=== PATIENT | male | born 1935 | race Caucasian/White ===

== ENCOUNTER 2016-10-30 11:38 | Inpatient (IN) | payer MEDICARE, OTHER ==
[2016-10-30] MEDS ORDERED: Ondansetron 4 MG Tab.DIS PO PRN (13:19)
[2016-10-30] MEDS ORDERED: Magnesium Hydroxide 400 MG/5 ML Susp 30 ML Cup PO PRN (13:19)
[2016-10-30] MEDS ORDERED: Temazepam 15 MG Cap PO PRN (13:19)
[2016-10-30] MEDS ORDERED: Simvastatin 20 MG Tab PO SCH (13:45)
[2016-10-30] MEDS: Gabapentin 300 MG Cap PO SCH ×2 (15:28→20:14)
[2016-10-30] MEDS: Acetaminophen 325 MG Tab PO PRN (16:05)
[2016-10-30] MEDS ORDERED: metFORMIN 500 MG Tab PO SCH (17:30)
[2016-10-30] MEDS: Insulin Aspart 100 Units/ML 3 ML Pen SUBCUT SCH (17:36)
[2016-10-30] MEDS: Simvastatin 20 MG Tab PO SCH (20:14)
[2016-10-30] MEDS: Latanoprost 0.005% Ophth Soln 2.5 ML Bottle EYEBOTH SCH (20:15)
[2016-10-30] MEDS: Formoterol/Mometasone 100-5 MCG 8.8 GM Inhaler IH SCH (20:15)
[2016-10-31] MEDS ORDERED: metFORMIN 500 MG Tab PO SCH (08:00)
[2016-10-31] MEDS ORDERED: Lisinopril 20 MG Tab PO SCH (08:00)
[2016-10-31] MEDS: Aspirin 81 MG Tab.EC PO SCH (09:00)
[2016-10-31] MEDS: Insulin Detemir 100 Units/ML 3 ML Pen SUBCUT SCH (09:00)
[2016-10-31] MEDS: NIFEdipine 30 MG Tab.ER PO SCH (09:02)
[2016-10-31] MEDS: Clopidogrel 75 MG Tab PO SCH (09:02)
[2016-10-31] MEDS: Cholecalciferol (Vitamin D3) 1,000 Unit Tab PO SCH (09:02)
[2016-10-31] MEDS: Multivitamin Tab PO SCH (09:02)
[2016-10-31] MEDS: Atenolol 25 MG Tab PO SCH (09:02)
[2016-10-31] MEDS: Lisinopril 5 MG Tab PO SCH (09:03)
[2016-10-31] MEDS: Insulin Aspart 100 Units/ML 3 ML Pen SUBCUT SCH ×3 (09:03→17:28)
[2016-10-31] MEDS: Gabapentin 300 MG Cap PO SCH ×3 (09:03→20:32)
[2016-10-31] MEDS: Formoterol/Mometasone 100-5 MCG 8.8 GM Inhaler IH SCH ×2 (09:06→20:35)
[2016-10-31] MEDS: Timolol Maleate 0.5% Ophth Soln 5 ML Bottle EYEBOTH SCH (09:06)
[2016-10-31] MEDS: Simvastatin 20 MG Tab PO SCH (20:32)
[2016-10-31] MEDS: Latanoprost 0.005% Ophth Soln 2.5 ML Bottle EYEBOTH SCH (20:33)
[2016-11-01] MEDS: Atenolol 25 MG Tab PO SCH (07:56)
[2016-11-01] MEDS: Cholecalciferol (Vitamin D3) 1,000 Unit Tab PO SCH (07:56)
[2016-11-01] MEDS: Lisinopril 5 MG Tab PO SCH (07:56)
[2016-11-01] MEDS: Clopidogrel 75 MG Tab PO SCH (07:56)
[2016-11-01] MEDS: Aspirin 81 MG Tab.EC PO SCH (07:56)
[2016-11-01] MEDS: Gabapentin 300 MG Cap PO SCH ×3 (07:58→19:33)
[2016-11-01] MEDS: Insulin Detemir 100 Units/ML 3 ML Pen SUBCUT SCH (07:58)
[2016-11-01] MEDS: NIFEdipine 30 MG Tab.ER PO SCH (07:58)
[2016-11-01] MEDS: Multivitamin Tab PO SCH (07:58)
[2016-11-01] MEDS: Insulin Aspart 100 Units/ML 3 ML Pen SUBCUT SCH ×3 (08:00→17:32)
[2016-11-01] MEDS: Formoterol/Mometasone 100-5 MCG 8.8 GM Inhaler IH SCH ×2 (08:04→21:36)
[2016-11-01] MEDS: Timolol Maleate 0.5% Ophth Soln 5 ML Bottle EYEBOTH SCH (08:05)
[2016-11-01] MEDS: Simvastatin 20 MG Tab PO SCH (19:33)
[2016-11-01] MEDS: Latanoprost 0.005% Ophth Soln 2.5 ML Bottle EYEBOTH SCH (19:33)
[2016-11-01] MEDS: traMADol 50 MG Tab PO PRN (23:53)
[2016-11-02 08:02] LABS: CHLORIDE,CL 99 mEq/L (98-106); SODIUM,NA 133 mEq/L (136-145)
--- NOTE | 2016-11-02 08:26 | PCM.HP ---
H&P History of Present Illness - General Date of Service: 10/30/16 Admit Problem/Dx: Admission Diagnosis/Problem Admission Diagnosis/Problem Peripheral vascular disease Source of Information: Patient, Old Records History Limitations: Reports: No Limitations - History of Present Illness Initial Comments - Free Text/Narative: Patient is a 81 year old admitted swing bed after having a stent placed in his right leg due to severe PVD. Was initially sent to [place] from [place] with concerns of a non-healing right heel ulcer for at least 3 weeks. Had significant eschar on his heel and wound nurses were unable to debride. Were concerned about osteomyelititis. 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 Patient was found to have moderate stenosis of the proximal SFA, high grade stenosis of the SFA to POP artery. Significant tibial artery occlusive disease. Underwent an angioplasty of the SFA. Transferred here for ongoing physical therapy for strengthening due to no weight bearing on the right leg. Duration of Symptoms: Reports: Day(s): Location: Reports: Lower Extremity, Right Quality: Reports: Ache Severity: Moderate Associated Symptoms: Denies: Fever/Chills, Nausea/Vomiting - Related Data Allergies/Adverse Reactions: Allergies Allergy/AdvReac Type Severity Reaction Status Date / Time morphine Allergy Nausea and Verified 10/30/16 13:00 Vomiting Home Medications: Home Meds Aspirin [Halfprin] 81 mg PO BRK 10/30/16 [History] Atenolol [Atenolol] 25 mg PO DAILY 10/30/16 [History] Cholecalciferol (Vitamin D3) [Vitamin D3] 1,000 unit PO DAILY 10/30/16 [History] Fluticasone/Salmeterol [Advair Diskus 100-50] 1 puff INH BID 10/30/16 [History] Gabapentin [Neurontin] 600 mg PO TID 10/30/16 [History] Insulin Asp Prot/Insulin Asp [NovoLOG Mix 70-30] 28 units SQ BID 10/30/16 [ History] Latanoprost [Latanoprost] 1 drop EYEBOTH BEDTIME 10/30/16 [History] Levobunolol [Betagan 0.5% Ophth Soln] 1 drop EYEBOTH QAM 10/30/16 [History] Lisinopril [Lisinopril] 40 mg PO DAILY 10/30/16 [History] Multivitamin with Minerals [Multivitamins with Minerals] 1 each PO DAILY [History] NIFEdipine [Nifedipine ER] 30 mg PO DAILY 10/30/16 [History] metFORMIN HCl [Metformin HCl] 1,000 mg PO QAM 10/30/16 [History] metFORMIN HCl [Metformin HCl] 1,500 mg PO QPM 10/30/16 [History] traMADol HCl [Tramadol HCl] 50 mg PO Q6H PRN 10/30/16 [History] Past Medical History HEENT History: Reports: Cataract Cardiovascular History: Reports: High Cholesterol Respiratory History: Reports: Asthma Endocrine/Metabolic History: Reports: Diabetes, Type II - Past Surgical History HEENT Surgical History: Reports: Cataract Surgery, Tonsillectomy Musculoskeletal Surgical History: Reports: Knee Replacement Social & Family History - Tobacco Use Smoking Status *Q: Former Smoker Used Tobacco, but Quit: Yes Month Tobacco Last Used: 1971 - Alcohol Use Days Per Week of Alcohol Use: 7 Number of Drinks Per Day: 2 Total Drinks Per Week: 14 - Recreational Drug Use Recreational Drug Use: No H&P Review of Systems - Review of Systems: Review Of Systems: See Below General: Reports: Weakness. Denies: Fever, Chills, Malaise HEENT: Reports: No Symptoms Pulmonary: Denies: Shortness of Breath, Wheezing, Cough Cardiovascular: Denies: Chest Pain, Edema, Lightheadedness Gastrointestinal: Denies: Abdominal Pain, Nausea, Vomiting Genitourinary: Reports: No Symptoms Skin: Reports: Wound, Other (right heel ulcer) Psychiatric: Reports: No Symptoms Neurological: Reports: Other (tingling in right leg) Exam - Exam Exam: See Below - Vital Signs Vital Signs: Last Vital Signs Temp 97.0 F 11/02/16 07:47 Pulse 97 11/02/16 07:47 Resp 16 11/02/16 07:47 BP 136/71 11/02/16 07:47 Pulse Ox 96 11/02/16 07:47 Weight: 180 lb 9.6 oz - Exam General: Alert, Oriented HEENT: Mucosa Moist & [place], Posterior Pharynx Clear Neck: Supple Lungs: Clear to Auscultation, Normal Respiratory Effort Cardiovascular: Regular Rate, Regular Rhythm GI/Abdominal Exam: Normal Bowel Sounds, Soft, Non-Tender Extremities: Normal Inspection, No Pedal Edema Skin: Other (has nickel sized area of eschar to right heel. Mild redness and bruising to right groin, nontender.) Neuro Extensive - Mental Status: Alert, Oriented x3 Psychiatric: Alert, Normal Affect, Normal Mood - Patient Data Lab Results Last 24 hrs: Laboratory Results - last 24 hr 11/01/16 11/01/16 11/01/16 Range/Units 11:40 16:25 21:40 WBC (5.0-10.0) 10^3/uL RBC (4.50-6.00) 10^6/uL Hgb (14.0-18.0) g/dL Hct (40.0-54.0) % MCV (82.0-94.0) fL MCH (27.0-32.0) pg MCHC (33.0-38.0) g/dL RDW Coeff of Marii (11.0-15.0) % Plt Count (150-400) 10^3/uL Neut % (Auto) (35-85) % Lymph % (Auto) (10-55) % [place] % (Auto) (0-16) % Eos % (Auto) (0-5) % Baso % (Auto) (0-3) % Neut # (Auto) (1.80-7.00) 10^3/uL Lymph # (Auto) (1.00-4.80) 10^3/uL [place]rick # (Auto) (0.00-0.80) 10^3/uL Eos # (Auto) (0.00-0.45) 10^3/uL Baso # (Auto) 10^3/uL Sodium (136-145) mEq/L Potassium (3.5-5.0) mEq/L Chloride (98-106) mEq/L Carbon Dioxide (21-32) mmol/L BUN (7-18) mg/dL Creatinine (0.7-1.3) mg/dL Est Cr Clr Drug Dosing mL/min Estimated GFR (MDRD) (>=60) mL/min Glucose (75-99) mg/dL POC Glucose 262 H 206 H 288 H (75-105) mg/dl Calcium (8.4-10.1) mg/dL Magnesium (1.8-2.4) mg/dL Total Bilirubin (0.0-1.0) mg/dL AST (15-37) U/L ALT (12-78) U/L Alkaline Phosphatase (46-116) U/L Total Protein (6.4-8.2) g/dL Albumin (3.4-5.0) g/dL 11/02/16 11/02/16 11/02/16 Range/Units 07:00 07:00 07:47 WBC 9.6 (5.0-10.0) 10^3/uL RBC 3.51 L (4.50-6.00) 10^6/uL Hgb 10.5 L (14.0-18.0) g/dL Hct 31.1 L (40.0-54.0) % MCV 88.6 (82.0-94.0) fL MCH 29.9 (27.0-32.0) pg MCHC 33.8 (33.0-38.0) g/dL RDW Coeff of Marii 13.6 (11.0-15.0) % Plt Count 269 (150-400) 10^3/uL Neut % (Auto) 68.3 (35-85) % Lymph % (Auto) 17.0 (10-55) % [place] % (Auto) 11.4 (0-16) % Eos % (Auto) 2.8 (0-5) % Baso % (Auto) 0.5 (0-3) % Neut # (Auto) 6.58 (1.80-7.00) 10^3/uL Lymph # (Auto) 1.64 (1.00-4.80) 10^3/uL Warrick # (Auto) 1.10 H (0.00-0.80) 10^3/uL Eos # (Auto) 0.27 (0.00-0.45) 10^3/uL Baso # (Auto) 0.05 10^3/uL Sodium 133 L (136-145) mEq/L Potassium 4.7 (3.5-5.0) mEq/L Chloride 99 (98-106) mEq/L Carbon Dioxide 27 (21-32) mmol/L BUN 14 (7-18) mg/dL Creatinine 0.7 (0.7-1.3) mg/dL Est Cr Clr Drug Dosing 78.71 mL/min Estimated GFR (MDRD) > 60 (>=60) mL/min Glucose 165 H (75-99) mg/dL POC Glucose 159 H (75-105) mg/dl Calcium 8.6 (8.4-10.1) mg/dL Magnesium 1.8 (1.8-2.4) mg/dL Total Bilirubin 0.7 (0.0-1.0) mg/dL AST 14 L (15-37) U/L ALT 26 (12-78) U/L Alkaline Phosphatase 67 (46-116) U/L Total Protein 6.6 (6.4-8.2) g/dL Albumin 2.6 L (3.4-5.0) g/dL Result Diagrams: 11/02/16 07:00 11/02/16 07:00 *Q Meaningful Use (ADM) - VTE *Q VTE Criteria *Q: - Stroke *Q Stroke Criteria *Q: - AMI *Q AMI Criteria *Q: - Problem List (1) S/P femoral-popliteal bypass surgery SNOMED Code(s): 392802261, 409262743, [id number] ICD Code: Z95.828 - PRESENCE OF OTHER VASCULAR IMPLANTS AND GRAFTS Status: Acute Priority: High Current Visit: Yes Problem List Initiated/Reviewed/Updated: Yes Orders Last 24hrs: Medication Orders Acetaminophen (Tylenol) 650 mg PO Q4H PRN PRN Reason: Pain (Mild 1-3)/fever Last Admin: 10/30/16 16:05 Dose: 650 mg Aspirin (Halfprin) 81 mg PO BRK [facility] Last Admin: 11/01/16 07:56 Dose: 81 mg Admin: 10/31/16 09:00 Dose: 81 mg Atenolol (Tenormin) 25 mg PO DAILY [facility] Last Admin: 11/01/16 07:56 Dose: 25 mg Admin: 10/31/16 09:02 Dose: 25 mg Cholecalciferol (Vitamin D3) 1,000 units PO DAILY [facility] Last Admin: 11/01/16 07:56 Dose: 1,000 units Admin: 10/31/16 09:02 Dose: 1,000 units Clopidogrel Bisulfate (Plavix) 75 mg PO DAILY [facility] Last Admin: 11/01/16 07:56 Dose: 75 mg Admin: 10/31/16 09:02 Dose: 75 mg Gabapentin (Neurontin) 600 mg PO TID [facility] Last Admin: 11/01/16 19:33 Dose: 600 mg Admin: 11/01/16 13:21 Dose: 600 mg Admin: 11/01/16 07:58 Dose: 600 mg Admin: 10/31/16 20:32 Dose: 600 mg Admin: 10/31/16 13:39 Dose: 600 mg Admin: 10/31/16 09:03 Dose: 600 mg Admin: 10/30/16 20:14 Dose: 600 mg Admin: 10/30/16 15:28 Dose: 600 mg Insulin Aspart (Novolog) 0 unit SUBCUT TIDMEALS [facility] PRN Reason: Protocol Last Admin: 11/01/16 17:32 Dose: 4 units Admin: 11/01/16 12:09 Dose: 6 units Admin: 11/01/16 08:00 Dose: Admin: 10/31/16 17:28 Dose: 2 units Admin: 10/31/16 12:27 Dose: 6 units Admin: 10/31/16 09:03 Dose: 2 units Admin: 10/30/16 17:36 Dose: 4 units Insulin Detemir (Levemir) 35 unit SUBCUT DAILY [facility] Last Admin: 11/01/16 07:58 Dose: 35 unit Admin: 10/31/16 09:00 Dose: 35 unit Latanoprost (Xalatan 0.005% [facility] Soln) 0 ml EYEBOTH BEDTIME [facility] Last Admin: 11/01/16 19:33 Dose: 1 drop Admin: 10/31/16 20:33 Dose: 1 drop Admin: 10/30/16 20:15 Dose: 1 drop Lisinopril (Prinivil) 5 mg PO DAILY [facility] Last Admin: 11/01/16 07:56 Dose: 5 mg Admin: 10/31/16 09:03 Dose: 5 mg Magnesium Hydroxide (Milk Of Magnesia) 30 ml PO Q12H PRN PRN Reason: Constipation Metformin HCl (Glucophage) 1,000 mg PO QAM [facility] Metformin HCl (Glucophage) 1,500 mg PO 1730 [facility] Mometasone Furoate/Formoterol Fumar (Dulera 100-5 Mcg) 1 puff IH BIDRT [facility] Last Admin: 11/01/16 21:36 Dose: Not Given Admin: 11/01/16 08:04 Dose: 1 inh Admin: 10/31/16 20:35 Dose: 1 inh Admin: 10/31/16 09:06 Dose: 1 inh Admin: 10/30/16 20:15 Dose: 1 inh Multivitamins/Minerals/Vitamin C (Tab-A-Sha) 1 tab PO DAILY [facility] Last Admin: 11/01/16 07:58 Dose: 1 tab Admin: 10/31/16 09:02 Dose: 1 tab Nifedipine (Procardia Xl) 30 mg PO DAILY [facility] Last Admin: 11/01/16 07:58 Dose: 30 mg Admin: 10/31/16 09:02 Dose: 30 mg Ondansetron HCl (Zofran Odt) 4 mg PO Q4H PRN PRN Reason: nausea, able to take PO Oxycodone/Acetaminophen (Percocet 325-5 Mg) 1 tab PO Q4H PRN PRN Reason: Pain Simvastatin (Zocor) 20 mg PO BEDTIME [facility] Last Admin: 11/01/16 19:33 Dose: 20 mg Admin: 10/31/16 20:32 Dose: 20 mg Admin: 10/30/16 20:14 Dose: 20 mg Temazepam (Restoril) 15 mg PO BEDTIME PRN PRN Reason: Sleep Timolol Maleate (Timoptic 0.5% Ophth Soln) 0 ml EYEBOTH QAM [facility] Last Admin: 11/01/16 08:05 Dose: 1 drop Admin: 10/31/16 09:06 Dose: 1 drop Tramadol HCl (Ultram) 50 mg PO Q6H PRN PRN Reason: Pain Last Admin: 11/01/16 23:53 Dose: 50 mg Assessment/Plan Comment:: Patient admitted to [facility] for ongoing physical therapy due to non-weight bearing status. Dr. Neff aware of admission and agrees with plan.
[2016-11-02] MEDS: Lisinopril 5 MG Tab PO SCH (08:38)
[2016-11-02] MEDS: NIFEdipine 30 MG Tab.ER PO SCH (08:38)
[2016-11-02] MEDS: Clopidogrel 75 MG Tab PO SCH (08:38)
[2016-11-02] MEDS: Atenolol 25 MG Tab PO SCH (08:38)
[2016-11-02] MEDS: Aspirin 81 MG Tab.EC PO SCH (08:38)
[2016-11-02] MEDS: Multivitamin Tab PO SCH (08:38)
[2016-11-02] MEDS: Cholecalciferol (Vitamin D3) 1,000 Unit Tab PO SCH (08:39)
[2016-11-02] MEDS: Timolol Maleate 0.5% Ophth Soln 5 ML Bottle EYEBOTH SCH (08:39)
[2016-11-02] MEDS: Gabapentin 300 MG Cap PO SCH ×3 (08:39→19:28)
[2016-11-02] MEDS: Insulin Detemir 100 Units/ML 3 ML Pen SUBCUT SCH (08:40)
[2016-11-02] MEDS: Insulin Aspart 100 Units/ML 3 ML Pen SUBCUT SCH ×3 (08:41→17:27)
[2016-11-02] MEDS: Formoterol/Mometasone 100-5 MCG 8.8 GM Inhaler IH SCH ×2 (08:43→20:10)
[2016-11-02] MEDS: Simvastatin 20 MG Tab PO SCH (19:28)
[2016-11-02] MEDS: Latanoprost 0.005% Ophth Soln 2.5 ML Bottle EYEBOTH SCH (20:09)
[2016-11-02] MEDS: Acetaminophen 325 MG Tab PO PRN (20:12)
[2016-11-03] MEDS: Aspirin 81 MG Tab.EC PO SCH (09:21)
[2016-11-03] MEDS: Lisinopril 5 MG Tab PO SCH (09:21)
[2016-11-03] MEDS: Multivitamin Tab PO SCH (09:21)
[2016-11-03] MEDS: Atenolol 25 MG Tab PO SCH (09:21)
[2016-11-03] MEDS: Cholecalciferol (Vitamin D3) 1,000 Unit Tab PO SCH (09:22)
[2016-11-03] MEDS: NIFEdipine 30 MG Tab.ER PO SCH (09:22)
[2016-11-03] MEDS: Clopidogrel 75 MG Tab PO SCH (09:22)
[2016-11-03] MEDS: Gabapentin 300 MG Cap PO SCH ×3 (09:23→19:27)
[2016-11-03] MEDS: Insulin Detemir 100 Units/ML 3 ML Pen SUBCUT SCH (09:24)
[2016-11-03] MEDS: Insulin Aspart 100 Units/ML 3 ML Pen SUBCUT SCH ×4 (09:25→20:48)
[2016-11-03] MEDS: Timolol Maleate 0.5% Ophth Soln 5 ML Bottle EYEBOTH SCH (09:27)
[2016-11-03] MEDS: Formoterol/Mometasone 100-5 MCG 8.8 GM Inhaler IH SCH ×2 (09:28→20:47)
[2016-11-03] MEDS: Acetaminophen/oxyCODONE 325-5 MG Tab PO PRN (09:29)
[2016-11-03] MEDS: metFORMIN 500 MG Tab PO SCH (17:08)
[2016-11-03] MEDS: Latanoprost 0.005% Ophth Soln 2.5 ML Bottle EYEBOTH SCH (19:25)
[2016-11-03] MEDS: Simvastatin 20 MG Tab PO SCH (19:26)
[2016-11-03] MEDS: Acetaminophen 325 MG Tab PO PRN (20:52)
[2016-11-03] MEDS: traMADol 50 MG Tab PO PRN (21:38)
[2016-11-04] MEDS: Aspirin 81 MG Tab.EC PO SCH (08:20)
[2016-11-04] MEDS: Multivitamin Tab PO SCH (08:20)
[2016-11-04] MEDS: Cholecalciferol (Vitamin D3) 1,000 Unit Tab PO SCH (08:20)
[2016-11-04] MEDS: NIFEdipine 30 MG Tab.ER PO SCH (08:21)
[2016-11-04] MEDS: Atenolol 25 MG Tab PO SCH (08:22)
[2016-11-04] MEDS: Clopidogrel 75 MG Tab PO SCH (08:22)
[2016-11-04] MEDS: Lisinopril 5 MG Tab PO SCH (08:23)
[2016-11-04] MEDS: Gabapentin 300 MG Cap PO SCH ×3 (08:23→19:44)
[2016-11-04] MEDS: metFORMIN 500 MG Tab PO SCH ×2 (08:25→17:38)
[2016-11-04] MEDS: Insulin Detemir 100 Units/ML 3 ML Pen SUBCUT SCH (08:26)
[2016-11-04] MEDS: Timolol Maleate 0.5% Ophth Soln 5 ML Bottle EYEBOTH SCH (08:30)
[2016-11-04] MEDS: Insulin Aspart 100 Units/ML 3 ML Pen SUBCUT SCH ×4 (08:30→21:05)
[2016-11-04] MEDS: Formoterol/Mometasone 100-5 MCG 8.8 GM Inhaler IH SCH ×2 (08:32→21:06)
[2016-11-04] MEDS: Acetaminophen/oxyCODONE 325-5 MG Tab PO PRN ×2 (10:00→18:45)
[2016-11-04] MEDS ORDERED: Oxyquinoline/Emollient 0.3% Oint 1 OZ Canister TOP PRN (11:11)
[2016-11-04] MEDS: Latanoprost 0.005% Ophth Soln 2.5 ML Bottle EYEBOTH SCH (19:43)
[2016-11-04] MEDS: Simvastatin 20 MG Tab PO SCH (19:44)
[2016-11-05] MEDS: Aspirin 81 MG Tab.EC PO SCH (08:11)
[2016-11-05] MEDS: Multivitamin Tab PO SCH (08:11)
[2016-11-05] MEDS: Cholecalciferol (Vitamin D3) 1,000 Unit Tab PO SCH (08:12)
[2016-11-05] MEDS: Gabapentin 300 MG Cap PO SCH ×3 (08:12→19:56)
[2016-11-05] MEDS: metFORMIN 500 MG Tab PO SCH ×2 (08:12→17:26)
[2016-11-05] MEDS: Atenolol 25 MG Tab PO SCH (08:12)
[2016-11-05] MEDS: NIFEdipine 30 MG Tab.ER PO SCH (08:12)
[2016-11-05] MEDS: Clopidogrel 75 MG Tab PO SCH (08:13)
[2016-11-05] MEDS: traMADol 50 MG Tab PO PRN ×2 (08:13→16:25)
[2016-11-05] MEDS: Lisinopril 5 MG Tab PO SCH (08:13)
[2016-11-05] MEDS: Acetaminophen 325 MG Tab PO PRN (08:16)
[2016-11-05] MEDS: Insulin Aspart 100 Units/ML 3 ML Pen SUBCUT SCH ×4 (08:19→21:23)
[2016-11-05] MEDS: Timolol Maleate 0.5% Ophth Soln 5 ML Bottle EYEBOTH SCH (08:20)
[2016-11-05] MEDS: Insulin Detemir 100 Units/ML 3 ML Pen SUBCUT SCH (08:21)
[2016-11-05] MEDS: Formoterol/Mometasone 100-5 MCG 8.8 GM Inhaler IH SCH ×2 (09:38→20:00)
[2016-11-05] MEDS: Acetaminophen/oxyCODONE 325-5 MG Tab PO PRN ×2 (09:56→15:08)
[2016-11-05] MEDS: Simvastatin 20 MG Tab PO SCH (19:56)
[2016-11-05] MEDS: Latanoprost 0.005% Ophth Soln 2.5 ML Bottle EYEBOTH SCH (19:56)
[2016-11-06] MEDS: Acetaminophen 325 MG Tab PO PRN (01:13)
[2016-11-06] MEDS: Aspirin 81 MG Tab.EC PO SCH (07:07)
[2016-11-06] MEDS: metFORMIN 500 MG Tab PO SCH (07:07)
[2016-11-06] MEDS: Clopidogrel 75 MG Tab PO SCH (07:07)
[2016-11-06] MEDS: Insulin Aspart 100 Units/ML 3 ML Pen SUBCUT SCH ×2 (07:07→11:20)
[2016-11-06] MEDS: Gabapentin 300 MG Cap PO SCH ×2 (07:07→15:48)
[2016-11-06] MEDS: Cholecalciferol (Vitamin D3) 1,000 Unit Tab PO SCH (07:07)
[2016-11-06] MEDS: NIFEdipine 30 MG Tab.ER PO SCH (07:08)
[2016-11-06] MEDS: Lisinopril 5 MG Tab PO SCH (07:08)
[2016-11-06] MEDS: Insulin Detemir 100 Units/ML 3 ML Pen SUBCUT SCH (07:08)
[2016-11-06] MEDS: Atenolol 25 MG Tab PO SCH (07:08)
[2016-11-06] MEDS: Timolol Maleate 0.5% Ophth Soln 5 ML Bottle EYEBOTH SCH (07:08)
[2016-11-06] MEDS: Multivitamin Tab PO SCH (07:08)
[2016-11-06 07:10] VITALS: BP 124/57
[2016-11-06 07:23] LABS: CHLORIDE,CL 93 mEq/L (98-106); SODIUM,NA 129 mEq/L (136-145)
[2016-11-06] MEDS: Formoterol/Mometasone 100-5 MCG 8.8 GM Inhaler IH SCH (11:20)
--- NOTE | 2016-11-08 20:10 | PCM.DCSUM1 ---
Discharge Summary - Hospital Course Free Text/Narrative:: Patient admitted for ongoing wound care and physical therapy S/P popliteal bypass due to severe PVD. IV antiboitics discontinued prior to admission at tertiary facility. Patient does have ongoing pain in his leg, throbbing. Is no weight bearing. Has large deep necrotic appearing sore on his right heel. - Discharge Data Discharge Date: 11/06/16 Discharge Disposition: DC/Tfer to Other 70 Condition: Undetermined - Discharge Diagnosis/Problem(s) (1) S/P femoral-popliteal bypass surgery SNOMED Code(s): 954773789, [id number], [id number] ICD Code: Z95.828 - PRESENCE OF OTHER VASCULAR IMPLANTS AND GRAFTS Status: Acute Priority: High - Patient Summary/Data Complications: none Consults: Consultations 10/30/16 13:19 PT Evaluation and Treatment [CONS] Routine Hospital Course: Patient has been doing well with PT during stay, minimal complaints. Has been running low grade temps through much of admission. On night prior to discharge , patient was up without calling for help, found on floor. Incontinent. Spiked fever 101, confused at the time. Did run labs in the am which showed elevated of his WBC to 20, CRP of 11.3 Daughter consulted as he was due for follow up appointments with podiatry and cardiology in [place] and she opted to take him to those appointments as he needed follow up. We were contacted by them after labs were forwarded down and they opted to readmit him at [place]. - Patient Instructions Diet: Usual Diet as Tolerated Activity: As Tolerated - Discharge Plan Home Medications: Home Meds Aspirin [Halfprin] 81 mg PO BRK 10/30/16 [History] Atenolol [Atenolol] 25 mg PO DAILY 10/30/16 [History] Cholecalciferol (Vitamin D3) [Vitamin D3] 1,000 unit PO DAILY 10/30/16 [History] Fluticasone/Salmeterol [Advair Diskus 100-50] 1 puff INH BID 10/30/16 [History] Gabapentin [Neurontin] 600 mg PO TID 10/30/16 [History] Insulin Asp Prot/Insulin Asp [NovoLOG Mix 70-30] 28 units SQ BID 10/30/16 [ History] Latanoprost [Latanoprost] 1 drop EYEBOTH BEDTIME 10/30/16 [History] Levobunolol [Betagan 0.5% Oph Soln] 1 drop EYEBOTH QAM 10/30/16 [History] Lisinopril [Lisinopril] 40 mg PO DAILY 10/30/16 [History] Multivitamin with Minerals [Multivitamins with Minerals] 1 each PO DAILY [History] NIFEdipine [Nifedipine ER] 30 mg PO DAILY 10/30/16 [History] metFORMIN HCl [Metformin HCl] 1,000 mg PO QAM 10/30/16 [History] metFORMIN HCl [Metformin HCl] 1,500 mg PO QPM 10/30/16 [History] traMADol HCl [Tramadol HCl] 50 mg PO Q6H PRN 10/30/16 [History] - Discharge Summary/Plan Comment DC Time >30 min.: No - General Info Date of Service: 11/06/16 Admission Dx/Problem (Free Text: Admission Diagnosis/Problem Admission Diagnosis/Problem Peripheral vascular disease Functional Status: Reports: Pain Controlled, Tolerating Diet, Ambulating - Review of Systems General: Reports: Fever, Weakness, Fatigue HEENT: Reports: No Symptoms Pulmonary: Denies: Shortness of Breath, Cough Cardiovascular: Denies: Chest Pain Gastrointestinal: Reports: No Symptoms Genitourinary: Reports: No Symptoms Musculoskeletal: Reports: Leg Pain Skin: Reports: Other (ulcer to right heel) Neurological: Reports: Confusion (while febrile, oriented this am prior to leaving for [place]) - Patient Data Vitals - Most Recent: Last Vital Signs Temp 97.7 F 11/06/16 07:10 Pulse 79 11/06/16 07:10 Resp 20 11/06/16 07:10 BP 124/57 L 11/06/16 07:10 Pulse Ox 92 L 11/06/16 07:10 Weight - Most Recent: 180 lb 9.6 oz Med Orders - Current: Current Medications Discontinued Medications Acetaminophen (Tylenol) 650 mg PO Q4H PRN PRN Reason: Pain (Mild 1-3)/fever Last Admin: 11/06/16 01:13 Dose: 650 mg Aspirin (Halfprin) 81 mg PO BRK [facility] Last Admin: 11/06/16 07:07 Dose: 81 mg Atenolol (Tenormin) 25 mg PO DAILY [facility] Last Admin: 09/22/17 07:08 Dose: 25 mg Cholecalciferol (Vitamin D3) 1,000 units PO DAILY [facility] Last Admin: 11/06/16 07:07 Dose: 1,000 units Clopidogrel Bisulfate (Plavix) 75 mg PO DAILY [facility] Last Admin: 11/06/16 07:07 Dose: 75 mg Gabapentin (Neurontin) 600 mg PO TID [facility] Last Admin: 11/06/16 15:48 Dose: Not Given Insulin Aspart (Novolog) 0 unit SUBCUT TIDMEALS [facility] PRN Reason: Protocol Last Admin: 11/03/16 09:25 Dose: 2 units Insulin Aspart (Novolog) 0 unit SUBCUT WITHMEALSANDBED [facility] PRN Reason: Protocol Last Admin: 11/06/16 11:20 Dose: Not Given Insulin Detemir (Levemir) 35 unit SUBCUT DAILY [facility] Last Admin: 11/06/16 07:08 Dose: 35 unit Latanoprost (Xalatan 0.005% Ophth Soln) 0 ml EYEBOTH BEDTIME [facility] Last Admin: 11/05/16 19:56 Dose: 1 drop Lisinopril (Prinivil) 40 mg PO DAILY [facility] Lisinopril (Prinivil) 5 mg PO DAILY [facility] Last Admin: 11/06/16 07:08 Dose: 5 mg Magnesium Hydroxide (Milk Of Magnesia) 30 ml PO Q12H PRN PRN Reason: Constipation Metformin HCl (Glucophage) 1,000 mg PO QAM [facility] Metformin HCl (Glucophage) 1,500 mg PO 1730 [facility] Metformin HCl (Glucophage) 1,500 mg PO 1730 [facility] Last Admin: 11/05/16 17:26 Dose: 1,500 mg Metformin HCl (Glucophage) 1,000 mg PO QAM [facility] Last Admin: 11/06/16 07:07 Dose: 1,000 mg Mometasone Furoate/Formoterol Fumar (Dulera 100-5 Mcg) 1 puff IH BIDRT [facility] Last Admin: 11/06/16 11:20 Dose: Not Given Multivitamins/Minerals/Vitamin C (Tab-A-Sha) 1 tab PO DAILY [facility] Last Admin: 11/06/16 07:08 Dose: 1 tab Nifedipine (Procardia Xl) 30 mg PO DAILY [facility] Last Admin: 11/06/16 07:08 Dose: 30 mg Ondansetron HCl (Zofran Odt) 4 mg PO Q4H PRN PRN Reason: nausea, able to take PO Oxycodone/Acetaminophen (Percocet 325-5 Mg) 1 tab PO Q4H PRN PRN Reason: Pain Last Admin: 11/05/16 15:08 Dose: 1 tab Oxyquinoline Sulfate (Bag [place] Oint) 1 oz TOP ASDIRECTED PRN PRN Reason: Other Simvastatin (Zocor) 20 mg PO BEDTIME [facility] Last Admin: 11/05/16 19:56 Dose: 20 mg Temazepam (Restoril) 15 mg PO BEDTIME PRN PRN Reason: Sleep Timolol Maleate (Timoptic 0.5% Ophth Soln) 0 ml EYEBOTH QAM [facility] Last Admin: 11/06/16 07:08 Dose: 1 drop Tramadol HCl (Ultram) 50 mg PO Q6H PRN PRN Reason: Pain Last Admin: 11/05/16 16:25 Dose: 50 mg - Exam General: Reports: Alert, Oriented HEENT: Reports: Mucous Membr. Moist/[place] Neck: Reports: Supple Lungs: Reports: Clear to Auscultation, Normal Respiratory Effort Cardiovascular: Reports: Regular Rate, Regular Rhythm Skin: Reports: Other (Ulcer to right heel) Psy/Mental Status: Reports: Alert *Q Meaningful Use (DIS) - VTE *Q VTE Criteria *Q: - Stroke *Q Stroke Criteria *Q: - AMI *Q AMI Criteria *Q:
== END 2016-11-06 09:30 | disposition other institution (70) | DRG 949 ==
LOC: CC.MS 12:41 → UNDOADMIN 12:41 → CC.MS 13:19
PROVIDERS: ADMIT Family Medicine; ATTEND Family Medicine
DX: Z48.812 Encounter for surgical aftercare following surgery on the circulatory system (principal); L97.419 Non-pressure chronic ulcer of right heel and midfoot with unspecified severity; Z95.820 Peripheral vascular angioplasty status with implants and grafts; I73.9 Peripheral vascular disease, unspecified; E11.40 Type 2 diabetes mellitus with diabetic neuropathy, unspecified; Z79.4 Long term (current) use of insulin; Z79.84 Long term (current) use of oral hypoglycemic drugs; Z79.82 Long term (current) use of aspirin; Z79.899 Other long term (current) drug therapy; E78.00 Pure hypercholesterolemia, unspecified; J45.909 Unspecified asthma, uncomplicated; Z96.659 Presence of unspecified artificial knee joint; Z87.891 Personal history of nicotine dependence
CPT/HCPCS: 36415; 80048; 80053; 81001; 82962; 83735; 85025; 86140; 97110-GP; 97162-GP; 97597-GP; A9270-GY; J1815-GY

== ENCOUNTER 2016-11-10 13:19 | Inpatient (IN) | payer MEDICARE, OTHER ==
[2016-11-10] MEDS ORDERED: Magnesium Hydroxide 400 MG/5 ML Susp 30 ML Cup PO PRN (16:34)
[2016-11-10] MEDS ORDERED: Ondansetron 4 MG Tab.DIS PO PRN (16:34)
[2016-11-10] MEDS ORDERED: Temazepam 15 MG Cap PO PRN (16:34)
[2016-11-10] MEDS: Insulin Aspart 100 Units/ML 3 ML Pen SUBCUT SCH ×2 (17:12→20:31)
[2016-11-10] MEDS: Amoxicillin/Clavulanate K 875-125 MG Tab PO SCH (17:46)
[2016-11-10] MEDS: Gabapentin 300 MG Cap PO SCH (19:52)
[2016-11-10] MEDS ORDERED: Insulin Detemir 100 Units/ML 3 ML Pen SUBCUT SCH (20:00)
[2016-11-10] MEDS ORDERED: Formoterol/Mometasone 200-5 MCG 8.8 GM Inhaler IH SCH (21:00)
[2016-11-11] MEDS: Aspirin 81 MG Tab.EC PO SCH (08:05)
[2016-11-11] MEDS: Amoxicillin/Clavulanate K 875-125 MG Tab PO SCH ×2 (08:05→17:51)
[2016-11-11] MEDS: Clopidogrel 75 MG Tab PO SCH (08:05)
[2016-11-11] MEDS: Gabapentin 300 MG Cap PO SCH ×3 (08:05→19:53)
[2016-11-11] MEDS: Atenolol 25 MG Tab PO SCH (08:05)
[2016-11-11] MEDS: Cholecalciferol (Vitamin D3) 1,000 Unit Tab PO SCH (08:05)
[2016-11-11] MEDS: Insulin Aspart 100 Units/ML 3 ML Pen SUBCUT SCH ×4 (08:09→20:28)
[2016-11-11] MEDS: Formoterol/Mometasone 100-5 MCG 8.8 GM Inhaler IH SCH ×2 (08:15→20:52)
[2016-11-11] MEDS: NIFEdipine 30 MG Tab.ER PO SCH (08:39)
[2016-11-11] MEDS: Lisinopril 5 MG Tab PO SCH (08:39)
[2016-11-11] MEDS: Acetaminophen/oxyCODONE 325-5 MG Tab PO PRN ×2 (08:39→21:19)
--- NOTE | 2016-11-11 09:07 | PCM.HP ---
H&P History of Present Illness - General Date of Service: 11/11/16 Admit Problem/Dx: Admission Diagnosis/Problem Admission Diagnosis/Problem Foot ulcer Source of Information: Patient, Old Records History Limitations: Reports: No Limitations - History of Present Illness Initial Comments - Free Text/Narative: Patient admitted swing bed from [place] for ongoing PT and wound care. During his swing bed stay here recently, he spiked a temp and had significant leukocytosis. Was to follow up with podiatry and cardiology in [place] and was admitted for IV antibiotics and further care there. Work up was completed there for the fever. Chest work up was negative for pneumonia. MRI of foot done which ruled out osteomyelitis. [place] fever associated with possible infection in foot related to ulcer. Did have podiatry following that. Was on IV Vanco initially but it was discontinued and switched to Unasyn. Discharged back here on Augmentin. Duration of Symptoms: Reports: Day(s): Location: Reports: Lower Extremity, Right Quality: Reports: Throbbing Severity: Mild Improves with: Reports: Medication Associated Symptoms: Reports: No Other Symptoms - Related Data Allergies/Adverse Reactions: Allergies Allergy/AdvReac Type Severity Reaction Status Date / Time morphine Allergy Nausea and Verified 11/10/16 14:33 Vomiting Home Medications: Home Meds Aspirin [Halfprin] 81 mg PO BRK 10/30/16 [History] Atenolol [Atenolol] 25 mg PO DAILY 10/30/16 [History] Cholecalciferol (Vitamin D3) [Vitamin D3] 1,000 unit PO DAILY 10/30/16 [History] Fluticasone/Salmeterol [Advair Diskus 100-50] 1 puff INH BID 10/30/16 [History] Gabapentin [Neurontin] 600 mg PO TID 10/30/16 [History] Insulin Asp Prot/Insulin Asp [NovoLOG Mix 70-30] 20 units SQ BID 10/30/16 [ History] Latanoprost [Latanoprost] 1 drop EYEBOTH BEDTIME 10/30/16 [History] Levobunolol [Betagan 0.5% Ophth Soln] 1 drop EYEBOTH QAM 10/30/16 [History] NIFEdipine [Nifedipine ER] 30 mg PO DAILY 10/30/16 [History] metFORMIN HCl [Metformin HCl] 1,000 mg PO QAM 10/30/16 [History] metFORMIN HCl [Metformin HCl] 1,500 mg PO QPM 10/30/16 [History] Amoxicillin/Potassium Clav [Augmentin 875-125 Tablet] 1 tab PO BID 11/10/16 [ History] Clopidogrel Bisulfate [Clopidogrel] 75 mg PO DAILY 11/10/16 [History] Ibuprofen 200 - 600 mg PO Q4H PRN 11/10/16 [History] Lisinopril 5 mg PO DAILY 11/10/16 [History] Rosuvastatin Calcium [Rosuvastatin Calcium] 10 mg PO DAILY 11/10/16 [History] Sennosides/Docusate Sodium [Senna-Docusate Sodium] 2 tab PO BID PRN 11/10/16 [ History] oxyCODONE HCl/Acetaminophen [Percocet 5-325 mg Tablet] 1 tab PO Q4H PRN [History] Past Medical History HEENT History: Reports: Cataract Cardiovascular History: Reports: High Cholesterol Respiratory History: Reports: Asthma Endocrine/Metabolic History: Reports: Diabetes, Type II - Past Surgical History HEENT Surgical History: Reports: Cataract Surgery, Tonsillectomy Musculoskeletal Surgical History: Reports: Knee Replacement Social & Family History - Tobacco Use Smoking Status *Q: Former Smoker Used Tobacco, but Quit: Yes Month Tobacco Last Used: 45 years ago - Caffeine Use Caffeine Use: Reports: Coffee - Alcohol Use Days Per Week of Alcohol Use: 7 Number of Drinks Per Day: 2 Total Drinks Per Week: 14 - Recreational Drug Use Recreational Drug Use: No H&P Review of Systems - Review of Systems: Review Of Systems: See Below General: Reports: Weakness. Denies: Fever, Chills, Malaise HEENT: Reports: No Symptoms Pulmonary: Denies: Shortness of Breath, Cough Cardiovascular: Denies: Chest Pain, Lightheadedness Gastrointestinal: Reports: Nausea, Vomiting (had emesis this am. Blood sugar noted at 42 this am. Was given orange juice with sugar and he wonders if the nausea is related to that.). Denies: Abdominal Pain Genitourinary: Reports: No Symptoms Musculoskeletal: Reports: Foot Pain Skin: Reports: Wound Psychiatric: Reports: No Symptoms Exam - Exam Exam: See Below - Vital Signs Vital Signs: Last Vital Signs Temp 98.6 F 11/11/16 08:00 Pulse 96 11/11/16 08:05 Resp 16 11/11/16 08:00 BP 139/60 11/11/16 08:39 Pulse Ox 92 L 11/11/16 08:00 Weight: 175 lb 12.8 oz - Exam General: Alert, Oriented HEENT: Conjunctiva Clear, Mucosa Moist & [place], Posterior Pharynx Clear Neck: Supple Lungs: Clear to Auscultation, Normal Respiratory Effort Cardiovascular: Regular Rate, Regular Rhythm GI/Abdominal Exam: Normal Bowel Sounds, Soft, Non-Tender Back Exam: Normal Inspection Extremities: Other (Right foot/heel wrapped at this time.) Neuro Extensive - Mental Status: Alert, Oriented x3 Psychiatric: Alert, Normal Affect, Normal Mood - Patient Data Lab Results Last 24 hrs: Laboratory Results - last 24 hr 11/10/16 11/10/16 11/11/16 Range/Units 17:09 20:20 07:39 POC Glucose 132 H 197 H 42 L* (75-105) mg/dl *Q Meaningful Use (ADM) - VTE *Q VTE Criteria *Q: - Stroke *Q Stroke Criteria *Q: - AMI *Q AMI Criteria *Q: - Problem List (1) Ulcer of right heel SNOMED Code(s): 478578440, 553867063 ICD Code: L97.419 - NON-PRS CHR ULCER OF RIGHT HEEL AND MIDFOOT W UNSP SEVERT Status: Acute Priority: High Current Visit: Yes (2) S/P femoral-popliteal bypass surgery SNOMED Code(s): 359705741, 499919541, 445183055 ICD Code: Z95.828 - PRESENCE OF OTHER VASCULAR IMPLANTS AND GRAFTS Status: Acute Priority: High Current Visit: Yes Problem List Initiated/Reviewed/Updated: Yes Orders Last 24hrs: Active Orders 24 hr Category Date Time Status Patient Status [ADT] Routine ADT 11/10/16 16:32 Active Blood Glucose Check, Bedside [RC] 0730,1130,1700,2100 Care 11/10/16 16:34 Active Oxygen Therapy [RC] .PRN Care 11/10/16 16:32 Active Up to Chair [RC] .PRN Care 11/10/16 16:34 Active Vital Signs [RC] 08,1999 Care 11/10/16 16:32 Active Wound Care [RC] Care 11/10/16 16:34 Active PT Evaluation and Treatment [CONS] Routine Cons 11/10/16 16:34 Active Consistent Carbohydrate Diet [DIET] Diet 11/10/16 Dinner Active Acetaminophen [Tylenol] Med 11/10/16 16:34 Active 650 mg PO Q4H PRN Acetaminophen/oxyCODONE [Percocet 325-5 MG] Med 11/11/16 08:17 Active 1 tab PO Q4H PRN Amoxicillin/Clavulanate K [Augmentin 875 MG/125 MG] Med 11/10/16 17:30 Active 1 tab PO BIDMEALS Aspirin [Halfprin] Med 11/11/16 08:00 Active 81 mg PO DAILY Atenolol [Tenormin] Med 11/11/16 08:00 Active 25 mg PO DAILY Cholecalciferol (Vitamin D3) [Vitamin D3] Med 11/11/16 08:00 Active 1,000 units PO DAILY Clopidogrel [Plavix] Med 11/11/16 08:00 Active 75 mg PO DAILY Docusate Sodium/Sennosides [Senna Plus] Med 11/11/16 08:17 Active 2 tab PO BID PRN Gabapentin [Neurontin] Med 11/10/16 20:00 Active 600 mg PO TID Ibuprofen [Motrin] Med 11/10/16 16:43 Active 200 - 600 mg PO Q4H PRN Insulin Aspart [NovoLOG] Med 11/10/16 17:30 Active See Protocol SUBCUT WITHMEALSANDBED Insulin Detemir [Levemir] Med 11/12/16 08:00 Active 30 unit SUBCUT 0800 Latanoprost [Xalatan 0.005% Ophth Soln] Med 11/11/16 20:00 Active 0 ml EYEBOTH BEDTIME Lisinopril [Prinivil] Med 11/11/16 08:30 Active 5 mg PO DAILY Magnesium Hydroxide [Milk of Magnesia] Med 11/10/16 16:34 Active 30 ml PO Q12H PRN Mometasone/Formoterol [Dulera 100-5 MCG] Med 11/11/16 08:00 Active 2 puff IH BIDRT NIFEdipine [Procardia XL] Med 11/11/16 08:30 Active 30 mg PO DAILY Ondansetron [Zofran ODT] Med 11/10/16 16:34 Active 4 mg PO Q4H PRN Simvastatin [Zocor] Med 11/11/16 20:00 Active 20 mg PO BEDTIME Temazepam [Restoril] Med 11/10/16 16:34 Active 15 mg PO BEDTIME PRN Timolol Maleate [Timoptic 0.5% Ophth Soln] Med 11/12/16 08:00 Active 0 ml EYEBOTH QAM metFORMIN [Glucophage] Med 11/12/16 08:00 Active 1,000 mg PO QAM metFORMIN [Glucophage] Med 11/11/16 17:30 Active 1,500 mg PO 1730 Weight bearing status [OM.PC] Routine Oth 11/10/16 16:34 Ordered Resuscitation Status Routine Resus Stat 11/10/16 16:32 Ordered Medication Orders Acetaminophen (Tylenol) 650 mg PO Q4H PRN PRN Reason: Pain (Mild 1-3)/fever Amoxicillin/Clavulanate Potassium (Augmentin 875 Mg/125 Mg) 1 tab PO BIDMEALS [facility] Last Admin: 11/11/16 08:05 Dose: 1 tab Admin: 11/10/16 17:46 Dose: 1 tab Aspirin (Halfprin) 81 mg PO DAILY [facility] Last Admin: 11/11/16 08:05 Dose: 81 mg Atenolol (Tenormin) 25 mg PO DAILY [facility] Last Admin: 11/11/16 08:05 Dose: 25 mg Cholecalciferol (Vitamin D3) 1,000 units PO DAILY [facility] Last Admin: 11/11/16 08:05 Dose: 1,000 units Clopidogrel Bisulfate (Plavix) 75 mg PO DAILY [facility] Last Admin: 11/11/16 08:05 Dose: 75 mg Gabapentin (Neurontin) 600 mg PO TID [facility] Last Admin: 11/11/16 08:05 Dose: 600 mg Admin: 11/10/16 19:52 Dose: 600 mg Ibuprofen (Motrin) 200 - 600 mg PO Q4H PRN PRN Reason: Pain/Fever Insulin Aspart (Novolog) 0 unit SUBCUT WITHMEALSANDBED [facility] PRN Reason: Protocol Last Admin: 11/11/16 08:09 Dose: Not Given Admin: 11/10/16 20:31 Dose: 2 unit Admin: 11/10/16 17:12 Dose: Not Given Insulin Detemir (Levemir) 30 unit SUBCUT 0800 [facility] Latanoprost (Xalatan 0.005% Ophth Soln) 0 ml EYEBOTH BEDTIME [facility] Lisinopril (Prinivil) 5 mg PO DAILY [facility] Last Admin: 11/11/16 08:39 Dose: 5 mg Magnesium Hydroxide (Milk Of Magnesia) 30 ml PO Q12H PRN PRN Reason: Constipation Metformin HCl (Glucophage) 1,000 mg PO QAM [facility] Metformin HCl (Glucophage) 1,500 mg PO 1730 [facility] Mometasone Furoate/Formoterol Fumar (Dulera 100-5 Mcg) 2 puff IH BIDRT [facility] Last Admin: 11/11/16 08:15 Dose: 2 puff Nifedipine (Procardia Xl) 30 mg PO DAILY [facility] Last Admin: 11/11/16 08:39 Dose: 30 mg Ondansetron HCl (Zofran Odt) 4 mg PO Q4H PRN PRN Reason: nausea, able to take PO Oxycodone/Acetaminophen (Percocet 325-5 Mg) 1 tab PO Q4H PRN PRN Reason: Pain (moderate 4-6) Last Admin: 11/11/16 08:39 Dose: 1 tab Senna/Docusate Sodium (Senna Plus) 2 tab PO BID PRN PRN Reason: Constipation Simvastatin (Zocor) 20 mg PO BEDTIME [facility] Temazepam (Restoril) 15 mg PO BEDTIME PRN PRN Reason: Sleep Timolol Maleate (Timoptic 0.5% Ophth Soln) 0 ml EYEBOTH QAM [facility] Assessment/Plan Comment:: Diabetic Foot Ulcer S/P popliteal bypass due to severe PVD Type 2 insulin-dependent diabetic Admit to swing bed. Continue with PT for strengthening, ambulation education as is no weight-bearing to right leg. Daily wet-to-dry dressing changes. Pain control. Continue Augmentin.
[2016-11-11] MEDS: metFORMIN 500 MG Tab PO SCH (17:51)
[2016-11-11] MEDS: Latanoprost 0.005% Ophth Soln 2.5 ML Bottle EYEBOTH SCH (19:52)
[2016-11-11] MEDS: Simvastatin 20 MG Tab PO SCH (19:53)
[2016-11-11] MEDS: Ibuprofen 200 MG Tab PO PRN (22:31)
[2016-11-12] MEDS: Acetaminophen/oxyCODONE 325-5 MG Tab PO PRN (08:06)
[2016-11-12] MEDS: Amoxicillin/Clavulanate K 875-125 MG Tab PO SCH ×2 (08:06→17:36)
[2016-11-12] MEDS: Atenolol 25 MG Tab PO SCH (08:07)
[2016-11-12] MEDS: NIFEdipine 30 MG Tab.ER PO SCH (08:08)
[2016-11-12] MEDS: Clopidogrel 75 MG Tab PO SCH (08:08)
[2016-11-12] MEDS: Gabapentin 300 MG Cap PO SCH ×3 (08:08→19:48)
[2016-11-12] MEDS: Cholecalciferol (Vitamin D3) 1,000 Unit Tab PO SCH (08:08)
[2016-11-12] MEDS: Aspirin 81 MG Tab.EC PO SCH (08:08)
[2016-11-12] MEDS: metFORMIN 500 MG Tab PO SCH ×2 (08:09→17:40)
[2016-11-12] MEDS: Insulin Aspart 100 Units/ML 3 ML Pen SUBCUT SCH ×4 (08:09→21:07)
[2016-11-12] MEDS: Lisinopril 5 MG Tab PO SCH (08:09)
[2016-11-12] MEDS: Insulin Detemir 100 Units/ML 3 ML Pen SUBCUT SCH (08:10)
[2016-11-12] MEDS: Formoterol/Mometasone 100-5 MCG 8.8 GM Inhaler IH SCH ×2 (10:04→21:07)
[2016-11-12] MEDS: Timolol Maleate 0.5% Ophth Soln 5 ML Bottle EYEBOTH SCH (10:04)
[2016-11-12] MEDS: Nystatin Topical Powder 15 GM Bottle TOP SCH ×2 (11:14→19:48)
[2016-11-12] MEDS: Latanoprost 0.005% Ophth Soln 2.5 ML Bottle EYEBOTH SCH (19:49)
[2016-11-12] MEDS: Simvastatin 20 MG Tab PO SCH (19:50)
[2016-11-12] MEDS: Acetaminophen 325 MG Tab PO PRN (19:53)
[2016-11-13] MEDS: Gabapentin 300 MG Cap PO SCH ×3 (07:43→20:05)
[2016-11-13] MEDS: Lisinopril 5 MG Tab PO SCH (07:44)
[2016-11-13] MEDS: Amoxicillin/Clavulanate K 875-125 MG Tab PO SCH ×2 (07:44→17:26)
[2016-11-13] MEDS: Atenolol 25 MG Tab PO SCH (07:44)
[2016-11-13] MEDS: Aspirin 81 MG Tab.EC PO SCH (07:44)
[2016-11-13] MEDS: Cholecalciferol (Vitamin D3) 1,000 Unit Tab PO SCH (07:44)
[2016-11-13] MEDS: Nystatin Topical Powder 15 GM Bottle TOP SCH ×2 (07:46→20:05)
[2016-11-13] MEDS: Clopidogrel 75 MG Tab PO SCH (07:46)
[2016-11-13] MEDS: metFORMIN 500 MG Tab PO SCH ×2 (07:46→17:29)
[2016-11-13] MEDS: NIFEdipine 30 MG Tab.ER PO SCH (07:46)
[2016-11-13] MEDS: Insulin Detemir 100 Units/ML 3 ML Pen SUBCUT SCH (07:47)
[2016-11-13] MEDS: Insulin Aspart 100 Units/ML 3 ML Pen SUBCUT SCH ×4 (07:47→20:07)
[2016-11-13] MEDS: Formoterol/Mometasone 100-5 MCG 8.8 GM Inhaler IH SCH ×3 (07:48→20:07)
[2016-11-13] MEDS: Timolol Maleate 0.5% Ophth Soln 5 ML Bottle EYEBOTH SCH (07:49)
[2016-11-13] MEDS: Ibuprofen 200 MG Tab PO PRN (10:04)
[2016-11-13] MEDS: Acetaminophen/oxyCODONE 325-5 MG Tab PO PRN ×2 (11:11→21:24)
[2016-11-13] MEDS: Simvastatin 20 MG Tab PO SCH (20:06)
[2016-11-13] MEDS: Latanoprost 0.005% Ophth Soln 2.5 ML Bottle EYEBOTH SCH (20:06)
[2016-11-14] MEDS: metFORMIN 500 MG Tab PO SCH ×2 (07:49→17:09)
[2016-11-14] MEDS: Clopidogrel 75 MG Tab PO SCH (07:49)
[2016-11-14] MEDS: Amoxicillin/Clavulanate K 875-125 MG Tab PO SCH ×2 (07:49→17:09)
[2016-11-14] MEDS: Cholecalciferol (Vitamin D3) 1,000 Unit Tab PO SCH (07:50)
[2016-11-14] MEDS: Gabapentin 300 MG Cap PO SCH ×3 (07:50→19:41)
[2016-11-14] MEDS: Aspirin 81 MG Tab.EC PO SCH (07:50)
[2016-11-14] MEDS: Nystatin Topical Powder 15 GM Bottle TOP SCH ×2 (07:51→19:44)
[2016-11-14] MEDS: Insulin Aspart 100 Units/ML 3 ML Pen SUBCUT SCH ×4 (07:53→20:04)
[2016-11-14] MEDS: Timolol Maleate 0.5% Ophth Soln 5 ML Bottle EYEBOTH SCH (07:53)
[2016-11-14] MEDS: Insulin Detemir 100 Units/ML 3 ML Pen SUBCUT SCH (07:54)
[2016-11-14] MEDS: Formoterol/Mometasone 100-5 MCG 8.8 GM Inhaler IH SCH ×2 (09:39→20:03)
[2016-11-14] MEDS: Lisinopril 5 MG Tab PO SCH (10:12)
[2016-11-14] MEDS: Atenolol 25 MG Tab PO SCH (10:13)
[2016-11-14] MEDS: NIFEdipine 30 MG Tab.ER PO SCH (10:13)
[2016-11-14] MEDS: Simvastatin 20 MG Tab PO SCH (19:41)
[2016-11-14] MEDS: Latanoprost 0.005% Ophth Soln 2.5 ML Bottle EYEBOTH SCH (19:43)
[2016-11-14] MEDS: Acetaminophen/oxyCODONE 325-5 MG Tab PO PRN (20:53)
[2016-11-15] MEDS: Amoxicillin/Clavulanate K 875-125 MG Tab PO SCH ×2 (07:50→17:33)
[2016-11-15] MEDS: Ibuprofen 200 MG Tab PO PRN (07:51)
[2016-11-15] MEDS: Aspirin 81 MG Tab.EC PO SCH (07:51)
[2016-11-15] MEDS: NIFEdipine 30 MG Tab.ER PO SCH (07:52)
[2016-11-15] MEDS: Cholecalciferol (Vitamin D3) 1,000 Unit Tab PO SCH (07:52)
[2016-11-15] MEDS: Gabapentin 300 MG Cap PO SCH ×3 (07:52→20:03)
[2016-11-15] MEDS: Lisinopril 5 MG Tab PO SCH (07:53)
[2016-11-15] MEDS: Clopidogrel 75 MG Tab PO SCH (07:53)
[2016-11-15] MEDS: Atenolol 25 MG Tab PO SCH (07:53)
[2016-11-15] MEDS: metFORMIN 500 MG Tab PO SCH ×2 (07:53→17:33)
[2016-11-15] MEDS: Timolol Maleate 0.5% Ophth Soln 5 ML Bottle EYEBOTH SCH (07:54)
[2016-11-15] MEDS: Nystatin Topical Powder 15 GM Bottle TOP SCH ×2 (07:55→20:09)
[2016-11-15] MEDS: Insulin Detemir 100 Units/ML 3 ML Pen SUBCUT SCH (07:56)
[2016-11-15] MEDS: Insulin Aspart 100 Units/ML 3 ML Pen SUBCUT SCH ×4 (07:57→20:09)
[2016-11-15] MEDS: Formoterol/Mometasone 100-5 MCG 8.8 GM Inhaler IH SCH ×2 (08:01→20:04)
[2016-11-15] MEDS: Acetaminophen/oxyCODONE 325-5 MG Tab PO PRN (15:09)
[2016-11-15] MEDS: Simvastatin 20 MG Tab PO SCH (20:04)
[2016-11-15] MEDS: Latanoprost 0.005% Ophth Soln 2.5 ML Bottle EYEBOTH SCH (20:04)
[2016-11-16] MEDS: Acetaminophen/oxyCODONE 325-5 MG Tab PO PRN ×2 (05:28→13:03)
[2016-11-16] MEDS: Aspirin 81 MG Tab.EC PO SCH (08:00)
[2016-11-16] MEDS: Amoxicillin/Clavulanate K 875-125 MG Tab PO SCH ×2 (08:01→17:21)
[2016-11-16] MEDS: Clopidogrel 75 MG Tab PO SCH (08:01)
[2016-11-16] MEDS: Cholecalciferol (Vitamin D3) 1,000 Unit Tab PO SCH (08:02)
[2016-11-16] MEDS: Gabapentin 300 MG Cap PO SCH ×3 (08:03→20:03)
[2016-11-16] MEDS: metFORMIN 500 MG Tab PO SCH ×2 (08:03→17:21)
[2016-11-16] MEDS: Insulin Detemir 100 Units/ML 3 ML Pen SUBCUT SCH (08:03)
[2016-11-16] MEDS: Insulin Aspart 100 Units/ML 3 ML Pen SUBCUT SCH ×4 (08:04→21:02)
[2016-11-16] MEDS: NIFEdipine 30 MG Tab.ER PO SCH (08:06)
[2016-11-16] MEDS: Atenolol 25 MG Tab PO SCH (08:06)
[2016-11-16] MEDS: Nystatin Topical Powder 15 GM Bottle TOP SCH ×2 (08:06→20:03)
[2016-11-16] MEDS: Timolol Maleate 0.5% Ophth Soln 5 ML Bottle EYEBOTH SCH (08:07)
[2016-11-16] MEDS: Lisinopril 5 MG Tab PO SCH (08:07)
[2016-11-16] MEDS: Formoterol/Mometasone 100-5 MCG 8.8 GM Inhaler IH SCH ×2 (08:11→20:03)
[2016-11-16] MEDS: Ibuprofen 200 MG Tab PO PRN (16:01)
[2016-11-16] MEDS: Latanoprost 0.005% Ophth Soln 2.5 ML Bottle EYEBOTH SCH (20:02)
[2016-11-16] MEDS: Simvastatin 20 MG Tab PO SCH (20:02)
[2016-11-17] MEDS: Atenolol 25 MG Tab PO SCH (08:06)
[2016-11-17] MEDS: Aspirin 81 MG Tab.EC PO SCH (08:06)
[2016-11-17] MEDS: Gabapentin 300 MG Cap PO SCH ×3 (08:06→19:52)
[2016-11-17] MEDS: NIFEdipine 30 MG Tab.ER PO SCH (08:06)
[2016-11-17] MEDS: Acetaminophen/oxyCODONE 325-5 MG Tab PO PRN ×3 (08:07→19:51)
[2016-11-17] MEDS: Clopidogrel 75 MG Tab PO SCH (08:07)
[2016-11-17] MEDS: metFORMIN 500 MG Tab PO SCH ×2 (08:07→17:29)
[2016-11-17] MEDS: Cholecalciferol (Vitamin D3) 1,000 Unit Tab PO SCH (08:07)
[2016-11-17] MEDS: Lisinopril 5 MG Tab PO SCH (08:07)
[2016-11-17] MEDS: Amoxicillin/Clavulanate K 875-125 MG Tab PO SCH ×2 (08:08→17:30)
[2016-11-17] MEDS: Formoterol/Mometasone 100-5 MCG 8.8 GM Inhaler IH SCH ×2 (08:10→20:20)
[2016-11-17] MEDS: Insulin Detemir 100 Units/ML 3 ML Pen SUBCUT SCH (08:10)
[2016-11-17] MEDS: Insulin Aspart 100 Units/ML 3 ML Pen SUBCUT SCH ×4 (08:11→20:20)
[2016-11-17] MEDS: Timolol Maleate 0.5% Ophth Soln 5 ML Bottle EYEBOTH SCH (08:11)
[2016-11-17] MEDS: Nystatin Topical Powder 15 GM Bottle TOP SCH ×2 (08:11→19:53)
[2016-11-17] MEDS: Latanoprost 0.005% Ophth Soln 2.5 ML Bottle EYEBOTH SCH (19:52)
[2016-11-17] MEDS: Simvastatin 20 MG Tab PO SCH (19:52)
[2016-11-18] MEDS: metFORMIN 500 MG Tab PO SCH ×2 (08:32→19:59)
[2016-11-18] MEDS: NIFEdipine 30 MG Tab.ER PO SCH (08:32)
[2016-11-18] MEDS: Amoxicillin/Clavulanate K 875-125 MG Tab PO SCH ×2 (08:34→20:00)
[2016-11-18] MEDS: Aspirin 81 MG Tab.EC PO SCH (08:34)
[2016-11-18] MEDS: Lisinopril 5 MG Tab PO SCH (08:34)
[2016-11-18] MEDS: Clopidogrel 75 MG Tab PO SCH (08:35)
[2016-11-18] MEDS: Acetaminophen 325 MG Tab PO PRN (08:35)
[2016-11-18] MEDS: Gabapentin 300 MG Cap PO SCH ×3 (08:35→20:00)
[2016-11-18] MEDS: Cholecalciferol (Vitamin D3) 1,000 Unit Tab PO SCH (08:35)
[2016-11-18] MEDS: Atenolol 25 MG Tab PO SCH (08:35)
[2016-11-18] MEDS: Insulin Aspart 100 Units/ML 3 ML Pen SUBCUT SCH ×4 (08:37→20:04)
[2016-11-18] MEDS: Insulin Detemir 100 Units/ML 3 ML Pen SUBCUT SCH (08:37)
[2016-11-18] MEDS: Nystatin Topical Powder 15 GM Bottle TOP SCH ×2 (08:42→20:04)
[2016-11-18] MEDS: Timolol Maleate 0.5% Ophth Soln 5 ML Bottle EYEBOTH SCH (08:44)
[2016-11-18] MEDS: Formoterol/Mometasone 100-5 MCG 8.8 GM Inhaler IH SCH ×2 (08:45→20:04)
[2016-11-18] MEDS: Acetaminophen/oxyCODONE 325-5 MG Tab PO PRN ×2 (09:42→14:08)
[2016-11-18] MEDS: Simvastatin 20 MG Tab PO SCH (20:00)
[2016-11-18] MEDS: Latanoprost 0.005% Ophth Soln 2.5 ML Bottle EYEBOTH SCH (20:04)
[2016-11-19] MEDS: Cholecalciferol (Vitamin D3) 1,000 Unit Tab PO SCH (08:29)
[2016-11-19] MEDS: metFORMIN 500 MG Tab PO SCH ×2 (08:29→20:15)
[2016-11-19] MEDS: Amoxicillin/Clavulanate K 875-125 MG Tab PO SCH ×2 (08:29→16:48)
[2016-11-19] MEDS: Clopidogrel 75 MG Tab PO SCH (08:29)
[2016-11-19] MEDS: Aspirin 81 MG Tab.EC PO SCH (08:31)
[2016-11-19] MEDS: Gabapentin 300 MG Cap PO SCH ×3 (08:31→19:58)
[2016-11-19] MEDS: Nystatin Topical Powder 15 GM Bottle TOP SCH ×2 (08:32→20:00)
[2016-11-19] MEDS: Insulin Aspart 100 Units/ML 3 ML Pen SUBCUT SCH ×4 (08:32→20:19)
[2016-11-19] MEDS: Insulin Detemir 100 Units/ML 3 ML Pen SUBCUT SCH (08:33)
[2016-11-19] MEDS: Atenolol 25 MG Tab PO SCH (09:03)
[2016-11-19] MEDS: Acetaminophen/oxyCODONE 325-5 MG Tab PO PRN ×2 (09:04→12:57)
[2016-11-19] MEDS: NIFEdipine 30 MG Tab.ER PO SCH (09:04)
[2016-11-19] MEDS: Lisinopril 5 MG Tab PO SCH (09:04)
[2016-11-19] MEDS: Formoterol/Mometasone 100-5 MCG 8.8 GM Inhaler IH SCH ×7 (09:06→19:59)
[2016-11-19] MEDS: Timolol Maleate 0.5% Ophth Soln 5 ML Bottle EYEBOTH SCH (09:06)
[2016-11-19] MEDS: Ibuprofen 200 MG Tab PO PRN (14:56)
[2016-11-19] MEDS: Simvastatin 20 MG Tab PO SCH (19:58)
[2016-11-19] MEDS: Latanoprost 0.005% Ophth Soln 2.5 ML Bottle EYEBOTH SCH (20:01)
[2016-11-20] MEDS: NIFEdipine 30 MG Tab.ER PO SCH (08:14)
[2016-11-20] MEDS: Amoxicillin/Clavulanate K 875-125 MG Tab PO SCH ×2 (08:14→18:32)
[2016-11-20] MEDS: Formoterol/Mometasone 100-5 MCG 8.8 GM Inhaler IH SCH ×2 (08:15→19:55)
[2016-11-20] MEDS: Gabapentin 300 MG Cap PO SCH ×3 (08:15→19:55)
[2016-11-20] MEDS: metFORMIN 500 MG Tab PO SCH ×2 (08:15→19:58)
[2016-11-20] MEDS: Insulin Detemir 100 Units/ML 3 ML Pen SUBCUT SCH (08:15)
[2016-11-20] MEDS: Insulin Aspart 100 Units/ML 3 ML Pen SUBCUT SCH ×4 (08:17→21:44)
[2016-11-20] MEDS: Nystatin Topical Powder 15 GM Bottle TOP SCH ×2 (08:18→19:59)
[2016-11-20] MEDS: Timolol Maleate 0.5% Ophth Soln 5 ML Bottle EYEBOTH SCH (08:20)
[2016-11-20] MEDS: Acetaminophen/oxyCODONE 325-5 MG Tab PO PRN ×2 (09:33→21:43)
[2016-11-20] MEDS: Aspirin 81 MG Tab.EC PO SCH (12:04)
[2016-11-20] MEDS: Atenolol 25 MG Tab PO SCH (12:05)
[2016-11-20] MEDS: Lisinopril 5 MG Tab PO SCH (12:05)
[2016-11-20] MEDS: Clopidogrel 75 MG Tab PO SCH (12:05)
[2016-11-20] MEDS: Acetaminophen 325 MG Tab PO PRN (19:55)
[2016-11-20] MEDS: Simvastatin 20 MG Tab PO SCH (19:55)
[2016-11-20] MEDS: Latanoprost 0.005% Ophth Soln 2.5 ML Bottle EYEBOTH SCH (19:58)
[2016-11-21] MEDS: Acetaminophen/oxyCODONE 325-5 MG Tab PO PRN ×3 (04:48→15:22)
[2016-11-21] MEDS: Gabapentin 300 MG Cap PO SCH ×3 (07:33→20:35)
[2016-11-21] MEDS: NIFEdipine 30 MG Tab.ER PO SCH (07:33)
[2016-11-21] MEDS: metFORMIN 500 MG Tab PO SCH ×2 (07:34→20:36)
[2016-11-21] MEDS: Formoterol/Mometasone 100-5 MCG 8.8 GM Inhaler IH SCH ×2 (07:34→20:36)
[2016-11-21] MEDS: Timolol Maleate 0.5% Ophth Soln 5 ML Bottle EYEBOTH SCH (07:36)
[2016-11-21] MEDS: Amoxicillin/Clavulanate K 875-125 MG Tab PO SCH ×2 (07:36→17:38)
[2016-11-21] MEDS: Nystatin Topical Powder 15 GM Bottle TOP SCH ×2 (07:36→20:35)
[2016-11-21] MEDS: Insulin Aspart 100 Units/ML 3 ML Pen SUBCUT SCH ×4 (07:37→20:36)
[2016-11-21] MEDS: Insulin Detemir 100 Units/ML 3 ML Pen SUBCUT SCH (07:38)
[2016-11-21 10:20] LABS: CHLORIDE,CL 97 mEq/L (98-106); SODIUM,NA 132 mEq/L (136-145)
[2016-11-21] MEDS: Atenolol 25 MG Tab PO SCH (11:59)
[2016-11-21] MEDS: Clopidogrel 75 MG Tab PO SCH (11:59)
[2016-11-21] MEDS: Aspirin 81 MG Tab.EC PO SCH (11:59)
[2016-11-21] MEDS: Lisinopril 5 MG Tab PO SCH (12:00)
[2016-11-21] MEDS: Simvastatin 20 MG Tab PO SCH (20:35)
[2016-11-21] MEDS: Latanoprost 0.005% Ophth Soln 2.5 ML Bottle EYEBOTH SCH (20:36)
[2016-11-22] MEDS: Amoxicillin/Clavulanate K 875-125 MG Tab PO SCH ×2 (07:31→17:20)
[2016-11-22] MEDS: metFORMIN 500 MG Tab PO SCH ×2 (07:32→20:45)
[2016-11-22] MEDS: Gabapentin 300 MG Cap PO SCH ×3 (07:33→20:35)
[2016-11-22] MEDS: NIFEdipine 30 MG Tab.ER PO SCH (07:33)
[2016-11-22] MEDS: Formoterol/Mometasone 100-5 MCG 8.8 GM Inhaler IH SCH ×2 (07:33→20:35)
[2016-11-22] MEDS: Insulin Detemir 100 Units/ML 3 ML Pen SUBCUT SCH (07:33)
[2016-11-22] MEDS: Insulin Aspart 100 Units/ML 3 ML Pen SUBCUT SCH ×4 (07:35→20:37)
[2016-11-22] MEDS: Nystatin Topical Powder 15 GM Bottle TOP SCH ×2 (07:35→20:39)
[2016-11-22] MEDS: Timolol Maleate 0.5% Ophth Soln 5 ML Bottle EYEBOTH SCH (07:36)
[2016-11-22] MEDS: Acetaminophen/oxyCODONE 325-5 MG Tab PO PRN ×2 (07:38→20:35)
[2016-11-22] MEDS: Lisinopril 5 MG Tab PO SCH (11:39)
[2016-11-22] MEDS: Clopidogrel 75 MG Tab PO SCH (11:39)
[2016-11-22] MEDS: Atenolol 25 MG Tab PO SCH (11:39)
[2016-11-22] MEDS: Aspirin 81 MG Tab.EC PO SCH (11:39)
[2016-11-22] MEDS: Simvastatin 20 MG Tab PO SCH (20:36)
[2016-11-22] MEDS: Latanoprost 0.005% Ophth Soln 2.5 ML Bottle EYEBOTH SCH (20:36)
[2016-11-23] MEDS: Amoxicillin/Clavulanate K 875-125 MG Tab PO SCH ×2 (07:37→17:30)
[2016-11-23] MEDS: metFORMIN 500 MG Tab PO SCH ×2 (07:38→19:49)
[2016-11-23] MEDS: Gabapentin 300 MG Cap PO SCH ×3 (07:38→19:46)
[2016-11-23] MEDS: Acetaminophen/oxyCODONE 325-5 MG Tab PO PRN ×3 (07:38→20:55)
[2016-11-23] MEDS: Insulin Detemir 100 Units/ML 3 ML Pen SUBCUT SCH (07:39)
[2016-11-23] MEDS: NIFEdipine 30 MG Tab.ER PO SCH (07:39)
[2016-11-23] MEDS: Formoterol/Mometasone 100-5 MCG 8.8 GM Inhaler IH SCH ×2 (07:40→19:46)
[2016-11-23] MEDS: Nystatin Topical Powder 15 GM Bottle TOP SCH ×2 (07:41→19:46)
[2016-11-23] MEDS: Timolol Maleate 0.5% Ophth Soln 5 ML Bottle EYEBOTH SCH (07:41)
[2016-11-23] MEDS: Insulin Aspart 100 Units/ML 3 ML Pen SUBCUT SCH ×4 (07:41→20:31)
[2016-11-23] MEDS: Acetaminophen 325 MG Tab PO PRN (09:39)
[2016-11-23] MEDS: Atenolol 25 MG Tab PO SCH (11:28)
[2016-11-23] MEDS: Clopidogrel 75 MG Tab PO SCH (11:28)
[2016-11-23] MEDS: Aspirin 81 MG Tab.EC PO SCH (11:28)
[2016-11-23] MEDS: Lisinopril 5 MG Tab PO SCH (11:29)
[2016-11-23] MEDS: Simvastatin 20 MG Tab PO SCH (19:45)
[2016-11-23] MEDS: Latanoprost 0.005% Ophth Soln 2.5 ML Bottle EYEBOTH SCH (19:47)
[2016-11-24] MEDS: Amoxicillin/Clavulanate K 875-125 MG Tab PO SCH ×2 (07:39→17:39)
[2016-11-24] MEDS: NIFEdipine 30 MG Tab.ER PO SCH (07:40)
[2016-11-24] MEDS: Gabapentin 300 MG Cap PO SCH ×3 (07:40→19:53)
[2016-11-24] MEDS: Formoterol/Mometasone 100-5 MCG 8.8 GM Inhaler IH SCH ×2 (07:41→19:52)
[2016-11-24] MEDS: Insulin Detemir 100 Units/ML 3 ML Pen SUBCUT SCH (07:41)
[2016-11-24] MEDS: metFORMIN 500 MG Tab PO SCH ×2 (07:41→19:53)
[2016-11-24] MEDS: Insulin Aspart 100 Units/ML 3 ML Pen SUBCUT SCH ×4 (07:42→20:54)
[2016-11-24] MEDS: Nystatin Topical Powder 15 GM Bottle TOP SCH ×2 (07:42→19:53)
[2016-11-24] MEDS: Timolol Maleate 0.5% Ophth Soln 5 ML Bottle EYEBOTH SCH (07:43)
[2016-11-24] MEDS: Acetaminophen/oxyCODONE 325-5 MG Tab PO PRN ×3 (07:46→21:19)
[2016-11-24] MEDS: Atenolol 25 MG Tab PO SCH (11:22)
[2016-11-24] MEDS: Lisinopril 5 MG Tab PO SCH (11:22)
[2016-11-24] MEDS: Aspirin 81 MG Tab.EC PO SCH (11:22)
[2016-11-24] MEDS: Clopidogrel 75 MG Tab PO SCH (11:22)
[2016-11-24] MEDS: Simvastatin 20 MG Tab PO SCH (19:52)
[2016-11-24] MEDS ORDERED: Nystatin Topical Powder 15 GM Bottle TOP PRN (19:54)
[2016-11-24] MEDS: Latanoprost 0.005% Ophth Soln 2.5 ML Bottle EYEBOTH SCH (19:58)
[2016-11-25] MEDS: Insulin Aspart 100 Units/ML 3 ML Pen SUBCUT SCH ×4 (07:49→20:51)
[2016-11-25] MEDS: NIFEdipine 30 MG Tab.ER PO SCH (07:54)
[2016-11-25] MEDS: metFORMIN 500 MG Tab PO SCH ×2 (07:54→20:13)
[2016-11-25] MEDS: Gabapentin 300 MG Cap PO SCH ×3 (07:54→20:04)
[2016-11-25] MEDS: Amoxicillin/Clavulanate K 875-125 MG Tab PO SCH ×2 (07:55→17:36)
[2016-11-25] MEDS: Timolol Maleate 0.5% Ophth Soln 5 ML Bottle EYEBOTH SCH (07:56)
[2016-11-25] MEDS: Formoterol/Mometasone 100-5 MCG 8.8 GM Inhaler IH SCH ×2 (07:56→20:07)
[2016-11-25] MEDS: Insulin Detemir 100 Units/ML 3 ML Pen SUBCUT SCH (07:57)
--- NOTE | 2016-11-25 09:18 | PCM.PN ---
- General Info Date of Service: 11/24/16 Admission Dx/Problem (Free Text): Admission Diagnosis/Problem Admission Diagnosis/Problem Foot ulcer Functional Status: Reports: Pain Controlled (with pain meds, is taking 2 prior to PT and wound care), Tolerating Diet, Ambulating - Review of Systems General: Reports: Weakness, Fatigue. Denies: Fever HEENT: Reports: No Symptoms Pulmonary: Denies: Shortness of Breath, Cough, Sputum Cardiovascular: Denies: Chest Pain, Edema, Lightheadedness Gastrointestinal: Denies: Abdominal Pain, Nausea, Vomiting Genitourinary: Reports: Incontinence Musculoskeletal: Reports: Leg Pain, Foot Pain Skin: Reports: No Symptoms Neurological: Reports: No Symptoms Psychiatric: Reports: No Symptoms - Patient Data Vitals - Most Recent: Last Vital Signs Temp 97.2 F 11/25/16 08:00 Pulse 112 H 11/25/16 08:00 Resp 18 11/25/16 08:00 BP 135/82 11/25/16 08:00 Pulse Ox 93 L 11/25/16 08:00 Weight - Most Recent: 174 lb 8 oz Lab Results Last 24 Hours: Laboratory Results - last 24 hr 11/24/16 11/24/16 11/24/16 Range/Units 11:29 17:05 19:45 POC Glucose 114 H 135 H 202 H (75-105) mg/dl 11/25/16 Range/Units 07:24 POC Glucose 96 (75-105) mg/dl Med Orders - Current: Current Medications Acetaminophen (Tylenol) 650 mg PO Q4H PRN PRN Reason: Pain (Mild 1-3)/fever Last Admin: 11/23/16 09:39 Dose: 650 mg Amoxicillin/Clavulanate Potassium (Augmentin 875 Mg/125 Mg) 1 tab PO BIDMEALS [facility] Last Admin: 11/25/16 07:55 Dose: 1 tab Aspirin (Halfprin) 81 mg PO 1200 [facility] Last Admin: 11/24/16 11:22 Dose: 81 mg Atenolol (Tenormin) 25 mg PO 1200 [facility] Last Admin: 11/24/16 11:22 Dose: 25 mg Clopidogrel Bisulfate (Plavix) 75 mg PO 1200 [facility] Last Admin: 11/24/16 11:22 Dose: 75 mg Gabapentin (Neurontin) 600 mg PO TID [facility] Last Admin: 11/25/16 07:54 Dose: 600 mg Ibuprofen (Motrin) 200 - 600 mg PO Q4H PRN PRN Reason: Pain/Fever Last Admin: 11/19/16 14:56 Dose: 400 mg Insulin Aspart (Novolog) 0 unit SUBCUT WITHMEALSANDBED [facility] PRN Reason: Protocol Last Admin: 11/25/16 07:49 Dose: Not Given Insulin Detemir (Levemir) 30 unit SUBCUT 0800 [facility] Last Admin: 11/25/16 07:57 Dose: 30 unit Latanoprost (Xalatan 0.005% Ophth Soln) 0 ml EYEBOTH BEDTIME [facility] Last Admin: 11/24/16 19:58 Dose: 1 drop Lisinopril (Prinivil) 5 mg PO 1200 [facility] Last Admin: 11/24/16 11:22 Dose: 5 mg Magnesium Hydroxide (Milk Of Magnesia) 30 ml PO Q12H PRN PRN Reason: Constipation Metformin HCl (Glucophage) 1,000 mg PO QAM [facility] Last Admin: 11/25/16 07:54 Dose: 1,000 mg Metformin HCl (Glucophage) 1,500 mg PO 2000 [facility] Last Admin: 11/24/16 19:53 Dose: 1,500 mg Mometasone Furoate/Formoterol Fumar (Dulera 100-5 Mcg) 2 puff IH BIDRT [facility] Last Admin: 11/25/16 07:56 Dose: 2 puff Nifedipine (Procardia Xl) 30 mg PO DAILY [facility] Last Admin: 11/25/16 07:54 Dose: 30 mg Nystatin (Nystop) 0 gm TOP BID PRN PRN Reason: Rash Ondansetron HCl (Zofran Odt) 4 mg PO Q4H PRN PRN Reason: nausea, able to take PO Last Admin: 11/14/16 18:31 Dose: 4 mg Oxycodone/Acetaminophen (Percocet 325-5 Mg) 0 tab PO Q4H PRN PRN Reason: Pain (moderate 4-6) Last Admin: 11/24/16 21:19 Dose: 1 tab Senna/Docusate Sodium (Senna Plus) 2 tab PO BID PRN PRN Reason: Constipation Last Admin: 11/24/16 19:57 Dose: 2 tab Simvastatin (Zocor) 20 mg PO BEDTIME [facility] Last Admin: 11/24/16 19:52 Dose: 20 mg Temazepam (Restoril) 15 mg PO BEDTIME PRN PRN Reason: Sleep Timolol Maleate (Timoptic 0.5% Ophth Soln) 0 ml EYEBOTH QAM [facility] Last Admin: 11/25/16 07:56 Dose: 1 drop Discontinued Medications Aspirin (Halfprin) 81 mg PO DAILY [facility] Last Admin: 11/19/16 08:31 Dose: 81 mg Atenolol (Tenormin) 25 mg PO DAILY [facility] Last Admin: 11/19/16 09:03 Dose: 25 mg Cholecalciferol (Vitamin D3) 1,000 units PO DAILY [facility] Last Admin: 11/19/16 08:29 Dose: 1,000 units Clopidogrel Bisulfate (Plavix) 75 mg PO DAILY [facility] Last Admin: 11/19/16 08:29 Dose: 75 mg Insulin Detemir (Levemir) 35 unit SUBCUT BEDTIME [facility] Last Admin: 11/10/16 20:30 Dose: 35 unit Lisinopril (Prinivil) 5 mg PO DAILY [facility] Last Admin: 11/19/16 09:04 Dose: 5 mg Metformin HCl (Glucophage) 1,500 mg PO 1730 [facility] Last Admin: 11/18/16 19:59 Dose: 1,500 mg Mometasone Furoate/Formoterol Fumar (Dulera 200-5 Mcg) 1 puff IH BIDRT [facility] Last Admin: 11/10/16 20:31 Dose: 1 puff Mometasone Furoate/Formoterol Fumar (Dulera 100-5 Mcg) 2 puff IH BIDRT [facility] Last Admin: 11/19/16 18:49 Dose: Not Given Nystatin (Nystop) 0 gm TOP BID [facility] Last Admin: 11/24/16 19:53 Dose: Not Given Oxycodone/Acetaminophen (Percocet 325-5 Mg) 1 tab PO Q4H PRN PRN Reason: Pain (moderate 4-6) Last Admin: 11/19/16 12:57 Dose: 1 tab - Exam General: Alert, Oriented HEENT: Mucous Membr. Moist/[place] Neck: Supple Lungs: Clear to Auscultation, Normal Respiratory Effort Cardiovascular: Regular Rate, Regular Rhythm GI/Abdominal Exam: Normal Bowel Sounds, Soft, Non-Tender Wound/Incisions: Dressing Dry and Intact Neurological: No New Focal Deficit Psy/Mental Status: Alert, Normal Affect, Normal Mood - Problem List & Annotations (1) Ulcer of right heel SNOMED Code(s): 311034953 Code(s): L97.419 - NON-PRS CHR ULCER OF RIGHT HEEL AND MIDFOOT W UNSP SEVERT Status: Acute Priority: High Current Visit: Yes (2) S/P femoral-popliteal bypass surgery SNOMED Code(s): 077874122, 514319805 Code(s): Z95.828 - PRESENCE OF OTHER VASCULAR IMPLANTS AND GRAFTS Status: Acute Priority: High Current Visit: Yes - Problem List Review Problem List Initiated/Reviewed/Updated: Yes - Assessment Assessment:: Ulcer of right heel History of leukocytosis PVD - Plan Plan:: Diabetic Foot Ulcer S/P popliteal bypass due to severe PVD Type 2 insulin-dependent diabetic Admit to swing bed. Continue with PT for strengthening, ambulation education as is no weight-bearing to right leg. Daily wet-to-dry dressing changes. Pain control. Continue Augmentin. 11-24-2016 Patient status is stable at this time. Did seem more weak and running low grade fevers over the weekend so labs were done without notable changes. Is currently afebrile. I did go over to PT on Wednesday and visualize his ulcer to his right heel. Much of the necrotic area has been debrided and surrounding tissue has been debrided nicely. Center to the wound is still meaty, brownish in color. Serous drainage noted. Very tender to palpation. Does continue to require pain meds for his heal. Will continue with wet to dry dressings, PT for strengthening and wound care. Scheduled to see [facility] office supervisor on , further weight bearing potential pending that appointment. Currently still on Augmentin.
[2016-11-25] MEDS: Acetaminophen/oxyCODONE 325-5 MG Tab PO PRN ×3 (10:06→20:05)
[2016-11-25] MEDS: Clopidogrel 75 MG Tab PO SCH (12:30)
[2016-11-25] MEDS: Atenolol 25 MG Tab PO SCH (12:30)
[2016-11-25] MEDS: Aspirin 81 MG Tab.EC PO SCH (12:30)
[2016-11-25] MEDS: Lisinopril 5 MG Tab PO SCH (12:32)
[2016-11-25] MEDS: Simvastatin 20 MG Tab PO SCH (20:04)
[2016-11-25] MEDS: Latanoprost 0.005% Ophth Soln 2.5 ML Bottle EYEBOTH SCH (20:07)
[2016-11-26] MEDS: Gabapentin 300 MG Cap PO SCH ×3 (07:41→19:54)
[2016-11-26] MEDS: NIFEdipine 30 MG Tab.ER PO SCH (07:42)
[2016-11-26] MEDS: metFORMIN 500 MG Tab PO SCH ×2 (07:42→19:57)
[2016-11-26] MEDS: Insulin Detemir 100 Units/ML 3 ML Pen SUBCUT SCH (08:08)
[2016-11-26] MEDS: Formoterol/Mometasone 100-5 MCG 8.8 GM Inhaler IH SCH ×2 (08:08→19:54)
[2016-11-26] MEDS: Amoxicillin/Clavulanate K 875-125 MG Tab PO SCH (08:08)
[2016-11-26] MEDS: Insulin Aspart 100 Units/ML 3 ML Pen SUBCUT SCH ×4 (08:09→20:00)
[2016-11-26] MEDS: Timolol Maleate 0.5% Ophth Soln 5 ML Bottle EYEBOTH SCH (08:10)
[2016-11-26] MEDS: Acetaminophen/oxyCODONE 325-5 MG Tab PO PRN ×3 (08:11→19:59)
[2016-11-26] MEDS: Atenolol 25 MG Tab PO SCH (12:33)
[2016-11-26] MEDS: Aspirin 81 MG Tab.EC PO SCH (12:33)
[2016-11-26] MEDS: Clopidogrel 75 MG Tab PO SCH (12:34)
[2016-11-26] MEDS: Lisinopril 5 MG Tab PO SCH (12:38)
[2016-11-26] MEDS: Latanoprost 0.005% Ophth Soln 2.5 ML Bottle EYEBOTH SCH (19:55)
[2016-11-26] MEDS: Simvastatin 20 MG Tab PO SCH (19:55)
[2016-11-27] MEDS: Gabapentin 300 MG Cap PO SCH ×3 (08:39→19:59)
[2016-11-27] MEDS: metFORMIN 500 MG Tab PO SCH (08:39)
[2016-11-27] MEDS: Formoterol/Mometasone 100-5 MCG 8.8 GM Inhaler IH SCH ×2 (08:40→20:00)
[2016-11-27] MEDS: Insulin Detemir 100 Units/ML 3 ML Pen SUBCUT SCH (08:40)
[2016-11-27] MEDS: Timolol Maleate 0.5% Ophth Soln 5 ML Bottle EYEBOTH SCH (08:42)
[2016-11-27] MEDS: Insulin Aspart 100 Units/ML 3 ML Pen SUBCUT SCH ×4 (08:42→20:53)
[2016-11-27] MEDS: Acetaminophen/oxyCODONE 325-5 MG Tab PO PRN (08:49)
[2016-11-27] MEDS: NIFEdipine 30 MG Tab.ER PO SCH (08:49)
[2016-11-27 11:35] LABS: CHLORIDE,CL 95 mEq/L (98-106); SODIUM,NA 129 mEq/L (136-145)
[2016-11-27] MEDS: Aspirin 81 MG Tab.EC PO SCH (12:03)
[2016-11-27] MEDS: Clopidogrel 75 MG Tab PO SCH (12:07)
[2016-11-27] MEDS: Atenolol 25 MG Tab PO SCH (12:10)
[2016-11-27] MEDS: Lisinopril 5 MG Tab PO SCH (12:10)
[2016-11-27] MEDS ORDERED: Iopamidol 755 Mg/ML 100 ML Bottle IVPUSH ONE (16:18)
[2016-11-27] MEDS: Acetaminophen 325 MG Tab PO PRN (18:06)
--- NOTE | 2016-11-27 18:54 | PCM.SN ---
- Free Text/Narrative Note: Received angio chest from radiologist. Small PE RLL Peripheral. I will start patient on Lovenox 1mg/kg.
[2016-11-27] MEDS: Simvastatin 20 MG Tab PO SCH (19:59)
[2016-11-27] MEDS: Enoxaparin 80 MG/0.8 ML Syringe SUBCUT SCH (19:59)
[2016-11-27] MEDS: Latanoprost 0.005% Ophth Soln 2.5 ML Bottle EYEBOTH SCH (20:01)
[2016-11-27] MEDS ORDERED: Albuterol/Ipratropium 3.0-0.5 MG/3 ML Neb Soln NEB PRN (20:18)
[2016-11-27] MEDS: Ibuprofen 200 MG Tab PO PRN (20:51)
[2016-11-27] MEDS: Levofloxacin/Dextrose 5%-Water 750 MG in Premix Bag 1 BAG IV SCH (20:51)
[2016-11-28] MEDS: Enoxaparin 80 MG/0.8 ML Syringe SUBCUT SCH ×2 (06:54→20:23)
[2016-11-28 08:07] LABS: CHLORIDE,CL 100 mEq/L (98-106); SODIUM,NA 137 mEq/L (136-145)
[2016-11-28] MEDS: Gabapentin 300 MG Cap PO SCH ×3 (08:22→20:25)
[2016-11-28] MEDS: Insulin Detemir 100 Units/ML 3 ML Pen SUBCUT SCH (08:24)
[2016-11-28] MEDS: Insulin Aspart 100 Units/ML 3 ML Pen SUBCUT SCH ×4 (08:24→20:30)
[2016-11-28] MEDS: Formoterol/Mometasone 100-5 MCG 8.8 GM Inhaler IH SCH ×2 (08:26→20:24)
[2016-11-28] MEDS: Timolol Maleate 0.5% Ophth Soln 5 ML Bottle EYEBOTH SCH (12:03)
[2016-11-28] MEDS: Aspirin 81 MG Tab.EC PO SCH (12:09)
[2016-11-28] MEDS: Atenolol 25 MG Tab PO SCH (12:09)
[2016-11-28] MEDS: Clopidogrel 75 MG Tab PO SCH (12:10)
[2016-11-28] MEDS: Lisinopril 5 MG Tab PO SCH (12:12)
[2016-11-28] MEDS: NIFEdipine 30 MG Tab.ER PO SCH (13:11)
--- NOTE | 2016-11-28 19:09 | PCM.PN ---
- General Info Date of Service: 11/28/16 Subjective Update: Nursing reported fever overnight. Started on Levaquin. Also started on lovenox last evening for right peripheral pulmonary embolism. Patient reports he feels well. Denies shortness of breath or chest pain. Wound dressing CDI. Functional Status: Reports: Pain Controlled, Tolerating Diet, Ambulating (NWM to R heel), Urinating - Review of Systems General: Reports: No Symptoms HEENT: Reports: No Symptoms Pulmonary: Reports: No Symptoms. Denies: Shortness of Breath, Pleuritic Chest Pain, Cough Cardiovascular: Reports: Dyspnea on Exertion. Denies: Chest Pain, Lightheadedness Gastrointestinal: Reports: No Symptoms Genitourinary: Reports: No Symptoms Musculoskeletal: Reports: Foot Pain Skin: Reports: No Symptoms Neurological: Reports: No Symptoms Psychiatric: Reports: No Symptoms - Patient Data Vitals - Most Recent: Last Vital Signs Temp 98.4 F 11/28/16 15:56 Pulse 108 H 11/28/16 15:56 Resp 16 11/28/16 15:56 BP 109/57 L 11/28/16 15:56 Pulse Ox 94 L 11/28/16 15:56 Weight - Most Recent: 174 lb 8 oz I&O - Last 24 Hours: Intake & Output 11/28/16 11/28/16 11/28/16 06:59 14:59 22:59 Intake Total 200 200 Balance 200 200 Lab Results Last 24 Hours: Laboratory Results - last 24 hr 11/27/16 11/27/16 11/27/16 Range/Units 07:25 11:31 17:04 WBC (5.0-10.0) 10^3/uL RBC (4.50-6.00) 10^6/uL Hgb (14.0-18.0) g/dL Hct (40.0-54.0) % MCV (82.0-94.0) fL MCH (27.0-32.0) pg MCHC (33.0-38.0) g/dL RDW Coeff of Marii (11.0-15.0) % Plt Count (150-400) 10^3/uL Neut % (Auto) (35-85) % Lymph % (Auto) (10-55) % [place] % (Auto) (0-16) % Eos % (Auto) (0-5) % Baso % (Auto) (0-3) % Neut # (Auto) (1.80-7.00) 10^3/uL Lymph # (Auto) (1.00-4.80) 10^3/uL [place] # (Auto) (0.00-0.80) 10^3/uL Eos # (Auto) (0.00-0.45) 10^3/uL Baso # (Auto) 10^3/uL PT 12.5 H (9.7-12.3) SEC INR 1.15 (0.92-1.18) APTT 37.5 H (24.5-30.9) SEC Sodium (136-145) mEq/L Potassium (3.5-5.0) mEq/L Chloride (98-106) mEq/L Carbon Dioxide (21-32) mmol/L BUN (7-18) mg/dL Creatinine (0.7-1.3) mg/dL Est Cr Clr Drug Dosing mL/min Estimated GFR (MDRD) (>=60) mL/min Glucose (75-99) mg/dL POC Glucose 161 H 129 H (75-105) mg/dl Calcium (8.4-10.1) mg/dL C-Reactive Protein (0.2-0.8) mg/dL NT-Pro-B Natriuret Pep (0-1000) pg/mL 11/27/16 11/28/16 11/28/16 Range/Units 20:22 07:25 07:25 WBC 8.3 (5.0-10.0) 10^3/uL RBC 3.06 L (4.50-6.00) 10^6/uL Hgb 9.2 L (14.0-18.0) g/dL Hct 27.7 L (40.0-54.0) % MCV 90.5 (82.0-94.0) fL MCH 30.1 (27.0-32.0) pg MCHC 33.2 (33.0-38.0) g/dL RDW Coeff of Marii 15.0 (11.0-15.0) % Plt Count 324 (150-400) 10^3/uL Neut % (Auto) 71.3 (35-85) % Lymph % (Auto) 14.8 (10-55) % [place] % (Auto) 10.3 (0-16) % Eos % (Auto) 3.2 (0-5) % Baso % (Auto) 0.4 (0-3) % Neut # (Auto) 5.92 (1.80-7.00) 10^3/uL Lymph # (Auto) 1.23 (1.00-4.80) 10^3/uL [place] # (Auto) 0.86 H (0.00-0.80) 10^3/uL Eos # (Auto) 0.27 (0.00-0.45) 10^3/uL Baso # (Auto) 0.03 10^3/uL PT (9.7-12.3) SEC INR (0.92-1.18) APTT (24.5-30.9) SEC Sodium 137 (136-145) mEq/L Potassium 3.9 (3.5-5.0) mEq/L Chloride 100 (98-106) mEq/L Carbon Dioxide 28 (21-32) mmol/L BUN 12 (7-18) mg/dL Creatinine 0.7 (0.7-1.3) mg/dL Est Cr Clr Drug Dosing 78.71 mL/min Estimated GFR (MDRD) > 60 (>=60) mL/min Glucose 110 H D (75-99) mg/dL POC Glucose 231 H (75-105) mg/dl Calcium 9.1 (8.4-10.1) mg/dL C-Reactive Protein 15.0 H (0.2-0.8) mg/dL NT-Pro-B Natriuret Pep 323 (0-1000) pg/mL 11/28/16 11/28/16 Range/Units 07:27 11:47 WBC (5.0-10.0) 10^3/uL RBC (4.50-6.00) 10^6/uL Hgb (14.0-18.0) g/dL Hct (40.0-54.0) % MCV (82.0-94.0) fL MCH (27.0-32.0) pg MCHC (33.0-38.0) g/dL RDW Coeff of Marii (11.0-15.0) % Plt Count (150-400) 10^3/uL Neut % (Auto) (35-85) % Lymph % (Auto) (10-55) % [place] % (Auto) (0-16) % Eos % (Auto) (0-5) % Baso % (Auto) (0-3) % Neut # (Auto) (1.80-7.00) 10^3/uL Lymph # (Auto) (1.00-4.80) 10^3/uL [place] # (Auto) (0.00-0.80) 10^3/uL Eos # (Auto) (0.00-0.45) 10^3/uL Baso # (Auto) 10^3/uL PT (9.7-12.3) SEC INR (0.92-1.18) APTT (24.5-30.9) SEC Sodium (136-145) mEq/L Potassium (3.5-5.0) mEq/L Chloride (98-106) mEq/L Carbon Dioxide (21-32) mmol/L BUN (7-18) mg/dL Creatinine (0.7-1.3) mg/dL Est Cr Clr Drug Dosing mL/min Estimated GFR (MDRD) (>=60) mL/min Glucose (75-99) mg/dL POC Glucose 138 H 222 H (75-105) mg/dl Calcium (8.4-10.1) mg/dL C-Reactive Protein (0.2-0.8) mg/dL NT-Pro-B Natriuret Pep (0-1000) pg/mL Med Orders - Current: Current Medications Acetaminophen (Tylenol) 650 mg PO Q4H PRN PRN Reason: Pain (Mild 1-3)/fever Last Admin: 11/27/16 18:06 Dose: 650 mg Albuterol/Ipratropium (Duoneb 3.0-0.5 Mg/3 Ml) 3 ml NEB TIDRT PRN PRN Reason: Dyspnea Last Admin: 11/27/16 20:48 Dose: 3 ml Aspirin (Halfprin) 81 mg PO 1200 [facility] Last Admin: 11/28/16 12:09 Dose: 81 mg Atenolol (Tenormin) 25 mg PO 1200 [facility] Last Admin: 11/28/16 12:09 Dose: 25 mg Clopidogrel Bisulfate (Plavix) 75 mg PO 1200 [facility] Last Admin: 11/28/16 12:10 Dose: 75 mg Enoxaparin Sodium (Lovenox) 80 mg SUBCUT Q12H [facility] Last Admin: 11/28/16 06:54 Dose: 80 mg Gabapentin (Neurontin) 600 mg PO TID [facility] Last Admin: 11/28/16 14:30 Dose: 600 mg Levofloxacin/Dextrose 750 mg/ (Premix) 150 mls @ 100 mls/hr IV Q24H [facility] Last Admin: 11/27/16 20:51 Dose: 100 mls/hr Ibuprofen (Motrin) 200 - 600 mg PO Q4H PRN PRN Reason: Pain/Fever Last Admin: 11/27/16 20:51 Dose: 400 mg Insulin Aspart (Novolog) 0 unit SUBCUT WITHMEALSANDBED [facility] PRN Reason: Protocol Last Admin: 11/28/16 17:46 Dose: 2 unit Insulin Detemir (Levemir) 30 unit SUBCUT 0800 [facility] Last Admin: 11/28/16 08:24 Dose: 30 unit Latanoprost (Xalatan 0.005% Ophth Soln) 0 ml EYEBOTH BEDTIME [facility] Last Admin: 11/27/16 20:01 Dose: 1 drop Lisinopril (Prinivil) 5 mg PO 1200 [facility] Last Admin: 11/28/16 12:12 Dose: 5 mg Magnesium Hydroxide (Milk Of Magnesia) 30 ml PO Q12H PRN PRN Reason: Constipation Metformin HCl (Glucophage) 1,000 mg PO QAM [facility] Last Admin: 11/27/16 08:39 Dose: 1,000 mg Metformin HCl (Glucophage) 1,500 mg PO 2000 [facility] Last Admin: 11/26/16 19:57 Dose: 1,500 mg Mometasone Furoate/Formoterol Fumar (Dulera 100-5 Mcg) 2 puff IH BIDRT [facility] Last Admin: 11/28/16 08:26 Dose: 2 puff Nifedipine (Procardia Xl) 30 mg PO DAILY [facility] Last Admin: 11/28/16 13:11 Dose: Not Given Nystatin (Nystop) 0 gm TOP BID PRN PRN Reason: Rash Ondansetron HCl (Zofran Odt) 4 mg PO Q4H PRN PRN Reason: nausea, able to take PO Last Admin: 11/14/16 18:31 Dose: 4 mg Oxycodone/Acetaminophen (Percocet 325-5 Mg) 0 tab PO Q4H PRN PRN Reason: Pain (moderate 4-6) Last Admin: 11/27/16 08:49 Dose: 2 tab Senna/Docusate Sodium (Senna Plus) 2 tab PO BID PRN PRN Reason: Constipation Last Admin: 11/24/16 19:57 Dose: 2 tab Simvastatin (Zocor) 20 mg PO BEDTIME [facility] Last Admin: 11/27/16 19:59 Dose: 20 mg Temazepam (Restoril) 15 mg PO BEDTIME PRN PRN Reason: Sleep Timolol Maleate (Timoptic 0.5% Ophth Soln) 0 ml EYEBOTH QAM [facility] Last Admin: 11/28/16 12:03 Dose: 1 drop Discontinued Medications Amoxicillin/Clavulanate Potassium (Augmentin 875 Mg/125 Mg) 1 tab PO BIDMEALS [facility] Last Admin: 11/26/16 08:08 Dose: 1 tab Aspirin (Halfprin) 81 mg PO DAILY [facility] Last Admin: 11/19/16 08:31 Dose: 81 mg Atenolol (Tenormin) 25 mg PO DAILY [facility] Last Admin: 11/19/16 09:03 Dose: 25 mg Cholecalciferol (Vitamin D3) 1,000 units PO DAILY [facility] Last Admin: 11/19/16 08:29 Dose: 1,000 units Clopidogrel Bisulfate (Plavix) 75 mg PO DAILY [facility] Last Admin: 11/19/16 08:29 Dose: 75 mg Insulin Detemir (Levemir) 35 unit SUBCUT BEDTIME [facility] Last Admin: 11/10/16 20:30 Dose: 35 unit Iopamidol (Isovue-370 (76%)) 100 ml IVPUSH ONETIME ONE Stop: 11/27/16 16:19 Last Admin: 11/27/16 17:05 Dose: 100 ml Lisinopril (Prinivil) 5 mg PO DAILY [facility] Last Admin: 11/19/16 09:04 Dose: 5 mg Metformin HCl (Glucophage) 1,500 mg PO 1730 [facility] Last Admin: 11/18/16 19:59 Dose: 1,500 mg Mometasone Furoate/Formoterol Fumar (Dulera 200-5 Mcg) 1 puff IH BIDRT [facility] Last Admin: 11/10/16 20:31 Dose: 1 puff Mometasone Furoate/Formoterol Fumar (Dulera 100-5 Mcg) 2 puff IH BIDRT [facility] Last Admin: 11/19/16 18:49 Dose: Not Given Nystatin (Nystop) 0 gm TOP BID [facility] Last Admin: 11/24/16 19:53 Dose: Not Given Oxycodone/Acetaminophen (Percocet 325-5 Mg) 1 tab PO Q4H PRN PRN Reason: Pain (moderate 4-6) Last Admin: 11/19/16 12:57 Dose: 1 tab - Exam General: Alert, Oriented Neck: Supple, Trachea Midline Lungs: Clear to Auscultation, Normal Respiratory Effort Cardiovascular: Regular Rate, Regular Rhythm, Murmurs GI/Abdominal Exam: Normal Bowel Sounds, Soft, Non-Tender, No Organomegaly, No Distention, No Abnormal Bruit, No Mass, Pelvis Stable (Male) Exam: Deferred Back Exam: Normal Inspection, Full Range of Motion Extremities: Normal Inspection, Normal Range of Motion, Non-Tender, No Pedal Edema, Normal Capillary Refill, Other (right heel wrapped with dressing) Peripheral Pulses: 1+: Posterior Tibial (R), Dorsalis Pedis (R) Skin: Warm, Dry, Intact Wound/Incisions: Other (covered) Neurological: No New Focal Deficit Psy/Mental Status: Alert, Normal Affect, Normal Mood - Problem List Review Problem List Initiated/Reviewed/Updated: Yes - Assessment Assessment:: Ulcer of right heel History of leukocytosis PVD Right lower lobe peripheral pulmonary embolism - Plan Plan:: Diabetic Foot Ulcer S/P popliteal bypass due to severe PVD Type 2 insulin-dependent diabetic Right Pulmonary Embolism Admit to swing bed. Continue with PT for strengthening, ambulation education as is no weight-bearing to right leg. Daily wet-to-dry dressing changes. Pain control. Continue Augmentin. 11-24-2016 Patient status is stable at this time. Did seem more weak and running low grade fevers over the weekend so labs were done without notable changes. Is currently afebrile. I did go over to PT on Wednesday and visualize his ulcer to his right heel. Much of the necrotic area has been debrided and surrounding tissue has been debrided nicely. Center to the wound is still meaty, brownish in color. Serous drainage noted. Very tender to palpation. Does continue to require pain meds for his heal. Will continue with wet to dry dressings, PT for strengthening and wound care. Scheduled to see the plisse machine operator helper on , further weight bearing potential pending that appointment. Currently still on Augmentin. 11/28/2016 CTA chest showed right lower peripheral pulmonary embolism. Started on lovenox. Also on aspirin and plavix. Denies shortness of breath and chest pain. Continue lovenox. Also started on Levaquin last evening, due to fever.
[2016-11-28] MEDS: Latanoprost 0.005% Ophth Soln 2.5 ML Bottle EYEBOTH SCH (20:24)
[2016-11-28] MEDS: Simvastatin 20 MG Tab PO SCH (20:24)
[2016-11-28] MEDS: Acetaminophen/oxyCODONE 325-5 MG Tab PO PRN (20:24)
[2016-11-28] MEDS: Levofloxacin/Dextrose 5%-Water 750 MG in Premix Bag 1 BAG IV SCH (20:29)
[2016-11-29] MEDS: Formoterol/Mometasone 100-5 MCG 8.8 GM Inhaler IH SCH ×2 (07:51→20:03)
[2016-11-29] MEDS: Insulin Detemir 100 Units/ML 3 ML Pen SUBCUT SCH (07:51)
[2016-11-29] MEDS: Enoxaparin 80 MG/0.8 ML Syringe SUBCUT SCH ×2 (07:53→20:06)
[2016-11-29] MEDS: Gabapentin 300 MG Cap PO SCH ×3 (07:54→20:04)
[2016-11-29] MEDS: NIFEdipine 30 MG Tab.ER PO SCH (07:54)
[2016-11-29] MEDS: Insulin Aspart 100 Units/ML 3 ML Pen SUBCUT SCH ×4 (07:55→20:36)
[2016-11-29] MEDS: Timolol Maleate 0.5% Ophth Soln 5 ML Bottle EYEBOTH SCH (07:56)
[2016-11-29] MEDS: Acetaminophen 325 MG Tab PO PRN (11:54)
[2016-11-29] MEDS: Clopidogrel 75 MG Tab PO SCH (12:00)
[2016-11-29] MEDS: Aspirin 81 MG Tab.EC PO SCH (12:00)
[2016-11-29] MEDS: Lisinopril 5 MG Tab PO SCH (12:05)
[2016-11-29] MEDS: Atenolol 25 MG Tab PO SCH (12:05)
[2016-11-29] MEDS: Latanoprost 0.005% Ophth Soln 2.5 ML Bottle EYEBOTH SCH (20:03)
[2016-11-29] MEDS: Levofloxacin/Dextrose 5%-Water 750 MG in Premix Bag 1 BAG IV SCH (20:04)
[2016-11-29] MEDS: Simvastatin 20 MG Tab PO SCH (20:04)
[2016-11-29] MEDS: metFORMIN 500 MG Tab PO SCH (20:06)
[2016-11-29] MEDS: Acetaminophen/oxyCODONE 325-5 MG Tab PO PRN (20:28)
[2016-11-30] MEDS: Formoterol/Mometasone 100-5 MCG 8.8 GM Inhaler IH SCH ×2 (07:42→19:46)
[2016-11-30] MEDS: metFORMIN 500 MG Tab PO SCH ×2 (07:42→19:45)
[2016-11-30] MEDS: Insulin Detemir 100 Units/ML 3 ML Pen SUBCUT SCH (07:42)
[2016-11-30] MEDS: Enoxaparin 80 MG/0.8 ML Syringe SUBCUT SCH ×2 (07:43→19:45)
[2016-11-30] MEDS: Gabapentin 300 MG Cap PO SCH ×3 (07:43→19:45)
[2016-11-30] MEDS: Insulin Aspart 100 Units/ML 3 ML Pen SUBCUT SCH ×4 (07:46→21:13)
[2016-11-30] MEDS: Timolol Maleate 0.5% Ophth Soln 5 ML Bottle EYEBOTH SCH (07:47)
[2016-11-30] MEDS: Acetaminophen/oxyCODONE 325-5 MG Tab PO PRN ×3 (09:19→19:45)
[2016-11-30] MEDS: NIFEdipine 30 MG Tab.ER PO SCH (09:21)
[2016-11-30] MEDS: Clopidogrel 75 MG Tab PO SCH (12:26)
[2016-11-30] MEDS: Aspirin 81 MG Tab.EC PO SCH (12:26)
[2016-11-30] MEDS: Lisinopril 5 MG Tab PO SCH (12:35)
[2016-11-30] MEDS: Atenolol 25 MG Tab PO SCH (12:37)
[2016-11-30] MEDS: Simvastatin 20 MG Tab PO SCH (19:44)
[2016-11-30] MEDS: Latanoprost 0.005% Ophth Soln 2.5 ML Bottle EYEBOTH SCH (19:46)
[2016-11-30] MEDS: Levofloxacin/Dextrose 5%-Water 750 MG in Premix Bag 1 BAG IV SCH (20:39)
[2016-12-01] MEDS: NIFEdipine 30 MG Tab.ER PO SCH (07:33)
[2016-12-01] MEDS: Gabapentin 300 MG Cap PO SCH ×3 (07:33→19:45)
[2016-12-01] MEDS: metFORMIN 500 MG Tab PO SCH ×2 (07:33→19:53)
[2016-12-01] MEDS: Enoxaparin 80 MG/0.8 ML Syringe SUBCUT SCH ×2 (07:33→19:45)
[2016-12-01] MEDS: Insulin Detemir 100 Units/ML 3 ML Pen SUBCUT SCH (07:34)
[2016-12-01] MEDS: Formoterol/Mometasone 100-5 MCG 8.8 GM Inhaler IH SCH ×2 (07:34→19:47)
[2016-12-01 07:38] LABS: CHLORIDE,CL 102 mEq/L (98-106); SODIUM,NA 135 mEq/L (136-145)
[2016-12-01] MEDS: Timolol Maleate 0.5% Ophth Soln 5 ML Bottle EYEBOTH SCH (07:38)
[2016-12-01] MEDS: Insulin Aspart 100 Units/ML 3 ML Pen SUBCUT SCH ×4 (07:38→20:40)
[2016-12-01] MEDS ORDERED: Oxyquinoline/Emollient 0.3% Oint 1 OZ Canister TOP PRN (08:33)
[2016-12-01] MEDS: Atenolol 25 MG Tab PO SCH (11:44)
[2016-12-01] MEDS: Acetaminophen/oxyCODONE 325-5 MG Tab PO PRN (11:44)
[2016-12-01] MEDS: Lisinopril 5 MG Tab PO SCH (11:44)
[2016-12-01] MEDS: Aspirin 81 MG Tab.EC PO SCH (11:44)
[2016-12-01] MEDS: Clopidogrel 75 MG Tab PO SCH (11:44)
[2016-12-01] MEDS: Amoxicillin/Clavulanate K 875-125 MG Tab PO SCH (17:50)
[2016-12-01] MEDS: Simvastatin 20 MG Tab PO SCH (19:45)
[2016-12-01] MEDS: Latanoprost 0.005% Ophth Soln 2.5 ML Bottle EYEBOTH SCH (19:48)
[2016-12-02] MEDS: Gabapentin 300 MG Cap PO SCH ×3 (07:33→19:57)
[2016-12-02] MEDS: NIFEdipine 30 MG Tab.ER PO SCH (07:33)
[2016-12-02] MEDS: metFORMIN 500 MG Tab PO SCH ×2 (07:33→19:57)
[2016-12-02] MEDS: Amoxicillin/Clavulanate K 875-125 MG Tab PO SCH ×2 (07:33→17:27)
[2016-12-02] MEDS: Formoterol/Mometasone 100-5 MCG 8.8 GM Inhaler IH SCH ×2 (07:34→19:55)
[2016-12-02] MEDS: Insulin Detemir 100 Units/ML 3 ML Pen SUBCUT SCH (07:34)
[2016-12-02] MEDS: Enoxaparin 80 MG/0.8 ML Syringe SUBCUT SCH ×2 (07:34→19:57)
[2016-12-02] MEDS: Insulin Aspart 100 Units/ML 3 ML Pen SUBCUT SCH ×4 (07:38→21:00)
[2016-12-02] MEDS: Timolol Maleate 0.5% Ophth Soln 5 ML Bottle EYEBOTH SCH (07:39)
[2016-12-02] MEDS: Lisinopril 5 MG Tab PO SCH (11:53)
[2016-12-02] MEDS: Aspirin 81 MG Tab.EC PO SCH (11:53)
[2016-12-02] MEDS: Atenolol 25 MG Tab PO SCH (11:53)
[2016-12-02] MEDS: Clopidogrel 75 MG Tab PO SCH (11:53)
[2016-12-02] MEDS: Simvastatin 20 MG Tab PO SCH (19:58)
[2016-12-02] MEDS: Acetaminophen/oxyCODONE 325-5 MG Tab PO PRN (19:58)
[2016-12-02] MEDS: Latanoprost 0.005% Ophth Soln 2.5 ML Bottle EYEBOTH SCH (19:58)
[2016-12-03] MEDS: Amoxicillin/Clavulanate K 875-125 MG Tab PO SCH (08:29)
[2016-12-03] MEDS: NIFEdipine 30 MG Tab.ER PO SCH (08:29)
[2016-12-03] MEDS: metFORMIN 500 MG Tab PO SCH (08:29)
[2016-12-03] MEDS: Enoxaparin 80 MG/0.8 ML Syringe SUBCUT SCH (08:30)
[2016-12-03] MEDS: Insulin Detemir 100 Units/ML 3 ML Pen SUBCUT SCH (08:30)
[2016-12-03] MEDS: Gabapentin 300 MG Cap PO SCH (08:30)
[2016-12-03] MEDS: Formoterol/Mometasone 100-5 MCG 8.8 GM Inhaler IH SCH (08:30)
[2016-12-03] MEDS: Insulin Aspart 100 Units/ML 3 ML Pen SUBCUT SCH (08:31)
[2016-12-03] MEDS: Timolol Maleate 0.5% Ophth Soln 5 ML Bottle EYEBOTH SCH (08:31)
[2016-12-03 08:40] VITALS: BP 127/43
--- NOTE | 2016-12-03 21:37 | PCM.DCSUM1 ---
Discharge Summary - Hospital Course Free Text/Narrative:: Patient admitted to swing bed a second time for ongoing physical therapy for strengthening and wound care due to pressure ulcer in right heel. Patient had been in our swing bed following a popliteal bypass for same. Did start spiking a fever, got confused and was admitted then again at [facility] due to leukocytosis. Did not find source of fever or leukocytosis. Did have MRI of foot that ruled out osteomyelitis. He was sent back to [facility] for ongoing PT and wound care. Had improvement of his WBC, fevers. - Discharge Data Discharge Date: 12/03/16 Discharge Disposition: DC/[facility] to [facility] Condition: Fair - Discharge Diagnosis/Problem(s) (1) Ulcer of right heel SNOMED Code(s): 698006623 ICD Code: L97.419 - NON-PRS CHR ULCER OF RIGHT HEEL AND MIDFOOT W UNSP SEVERT Status: Acute Priority: High (2) S/P femoral-popliteal bypass surgery SNOMED Code(s): 884002547, 624061048 ICD Code: Z95.828 - PRESENCE OF OTHER VASCULAR IMPLANTS AND GRAFTS Status: Acute Priority: High - Patient Summary/Data Complications: Worsening of right heel wound. Development of PE Consults: Consultations 11/10/16 16:34 PT Evaluation and Treatment [CONS] Routine 11/16/16 09:10 Consult to Dietary [Consult to Mixer Wet Pour] [CONS] Routine Hospital Course: Patient was admitted back to swing bed for PT and started on Augmentin. He has continued to have whirlpool treatments and wet to dry dressings. Ulcer has worsened since admission, tissue not responding to therapy or antibiotics. Wound ulcer worsening. Does follow with podiatry. Was seen last week and had stopped Augmentin but within days, leg became more red and swollen again. He did develop shortness of breath during his stay despite being on Plavix and ASA. D-dimer was elevated, CT scan done with noted PE. Lovenox initiated. Will discharge on Eliquis to jail. Blood sugars have been stable throughout stay. Minimal humalog required by sliding scale. Will continue with Metformin and Levemir. continue Augmentin. Is to follow up with Dr. Ortiz next week in [place]. - Patient Instructions Diet: Diabetic Diet Other/Special Instructions: Wet to dry dressings BID - Discharge Plan Prescriptions/Med Rec: Apixaban [Eliquis] 5 mg PO BID #60 tablet Insulin Detemir [Levemir] 30 unit SUBCUT 0800 #30 pen Home Medications: Home Meds Aspirin [Halfprin] 81 mg PO BRK 10/30/16 [History] Atenolol 25 mg PO DAILY 10/30/16 [History] Cholecalciferol (Vitamin D3) [Vitamin D3] 1,000 unit PO DAILY 10/30/16 [History] Fluticasone/Salmeterol [Advair Diskus 100-50] 1 puff INH BID 10/30/16 [History] Gabapentin [Neurontin] 600 mg PO TID 10/30/16 [History] Latanoprost 1 drop EYEBOTH BEDTIME 10/30/16 [History] Levobunolol [Betagan 0.5% Ophth Soln] 1 drop EYEBOTH QAM 10/30/16 [History] NIFEdipine [Nifedipine ER] 30 mg PO DAILY 10/30/16 [History] metFORMIN HCl [Metformin HCl] 1,000 mg PO QAM 10/30/16 [History] metFORMIN HCl [Metformin HCl] 1,500 mg PO QPM 10/30/16 [History] Amoxicillin/Potassium Clav [Augmentin 875-125 Tablet] 1 tab PO BID 11/10/16 [ History] Clopidogrel Bisulfate [Clopidogrel] 75 mg PO DAILY 11/10/16 [History] Lisinopril 5 mg PO DAILY 11/10/16 [History] Rosuvastatin Calcium 10 mg PO DAILY 11/10/16 [History] Sennosides/Docusate Sodium [Senna-Docusate Sodium] 2 tab PO BID PRN 11/10/16 [ History] oxyCODONE HCl/Acetaminophen [Percocet 5-325 mg Tablet] 1 tab PO Q4H PRN [History] Apixaban [Eliquis] 5 mg PO BID #60 tablet 12/03/16 [Rx] Insulin Detemir [Levemir] 30 unit SUBCUT 0800 #30 pen 12/03/16 [Rx] - General Info Date of Service: 12/03/16 Admission Dx/Problem (Free Text: Admission Diagnosis/Problem Admission Diagnosis/Problem Foot ulcer Functional Status: Reports: Pain Controlled (with pain meds), Tolerating Diet, Ambulating - Review of Systems General: Reports: Weakness. Denies: Fever, Chills HEENT: Reports: No Symptoms Pulmonary: Denies: Shortness of Breath, Cough Cardiovascular: Reports: Edema. Denies: Chest Pain, Lightheadedness Gastrointestinal: Denies: Abdominal Pain, Constipation, Diarrhea, Nausea, Vomiting Genitourinary: Reports: No Symptoms Musculoskeletal: Reports: Foot Pain Skin: Reports: Other (wound to right heel) Neurological: Reports: Other (neuropathic pain) - Patient Data Vitals - Most Recent: Last Vital Signs Temp 97.7 F 12/03/16 08:00 Pulse 104 H 12/03/16 08:00 Resp 19 12/03/16 08:00 BP 127/43 L 12/03/16 08:00 Pulse Ox 96 12/03/16 08:00 Weight - Most Recent: 170 lb 11.2 oz Lab Results - Last 24 hrs: Laboratory Results - last 24 hr 12/03/16 Range/Units 07:45 POC Glucose 124 H (75-105) mg/dl Med Orders - Current: Current Medications Discontinued Medications Acetaminophen (Tylenol) 650 mg PO Q4H PRN PRN Reason: Pain (Mild 1-3)/fever Last Admin: 11/29/16 11:54 Dose: 650 mg Albuterol/Ipratropium (Duoneb 3.0-0.5 Mg/3 Ml) 3 ml NEB TIDRT PRN PRN Reason: Dyspnea Last Admin: 11/27/16 20:48 Dose: 3 ml Amoxicillin/Clavulanate Potassium (Augmentin 875 Mg/125 Mg) 1 tab PO BIDMEALS [facility] Last Admin: 11/26/16 08:08 Dose: 1 tab Amoxicillin/Clavulanate Potassium (Augmentin 875 Mg/125 Mg) 1 tab PO BIDMEALS [facility] Last Admin: 12/03/16 08:29 Dose: 1 tab Aspirin (Halfprin) 81 mg PO DAILY [facility] Last Admin: 11/19/16 08:31 Dose: 81 mg Aspirin (Halfprin) 81 mg PO 1200 [facility] Last Admin: 12/02/16 11:53 Dose: 81 mg Atenolol (Tenormin) 25 mg PO DAILY [facility] Last Admin: 11/19/16 09:03 Dose: 25 mg Atenolol (Tenormin) 25 mg PO 1200 [facility] Last Admin: 12/02/16 11:53 Dose: 25 mg Cholecalciferol (Vitamin D3) 1,000 units PO DAILY [facility] Last Admin: 11/19/16 08:29 Dose: 1,000 units Clopidogrel Bisulfate (Plavix) 75 mg PO DAILY [facility] Last Admin: 11/19/16 08:29 Dose: 75 mg Clopidogrel Bisulfate (Plavix) 75 mg PO 1200 [facility] Last Admin: 12/02/16 11:53 Dose: 75 mg Enoxaparin Sodium (Lovenox) 80 mg SUBCUT Q12H [facility] Last Admin: 11/28/16 20:23 Dose: 80 mg Enoxaparin Sodium (Lovenox) 80 mg SUBCUT Q12H [facility] Last Admin: 12/03/16 08:30 Dose: 80 mg Gabapentin (Neurontin) 600 mg PO TID [facility] Last Admin: 12/03/16 08:30 Dose: 600 mg Levofloxacin/Dextrose 750 mg/ (Premix) 150 mls @ 100 mls/hr IV Q24H [facility] Last Admin: 11/30/16 20:39 Dose: 100 mls/hr Ibuprofen (Motrin) 200 - 600 mg PO Q4H PRN PRN Reason: Pain/Fever Last Admin: 11/27/16 20:51 Dose: 400 mg Insulin Aspart (Novolog) 0 unit SUBCUT WITHMEALSANDBED [facility] PRN Reason: Protocol Last Admin: 12/03/16 08:31 Dose: Not Given Insulin Detemir (Levemir) 35 unit SUBCUT BEDTIME [facility] Last Admin: 11/10/16 20:30 Dose: 35 unit Insulin Detemir (Levemir) 30 unit SUBCUT 0800 [facility] Last Admin: 12/03/16 08:30 Dose: 30 unit Iopamidol (Isovue-370 (76%)) 100 ml IVPUSH ONETIME ONE Stop: 11/27/16 16:19 Last Admin: 11/27/16 17:05 Dose: 100 ml Latanoprost (Xalatan 0.005% [facility] Soln) 0 ml EYEBOTH BEDTIME [facility] Last Admin: 12/02/16 19:58 Dose: 1 drop Lisinopril (Prinivil) 5 mg PO DAILY [facility] Last Admin: 11/19/16 09:04 Dose: 5 mg Lisinopril (Prinivil) 5 mg PO 1200 [facility] Last Admin: 12/02/16 11:53 Dose: 5 mg Magnesium Hydroxide (Milk Of Magnesia) 30 ml PO Q12H PRN PRN Reason: Constipation Metformin HCl (Glucophage) 1,000 mg PO QAM [facility] Last Admin: 12/03/16 08:29 Dose: 1,000 mg Metformin HCl (Glucophage) 1,500 mg PO 1730 [facility] Last Admin: 11/18/16 19:59 Dose: 1,500 mg Metformin HCl (Glucophage) 1,500 mg PO 2000 [facility] Last Admin: 12/02/16 19:57 Dose: 1,500 mg Mometasone Furoate/Formoterol Fumar (Dulera 200-5 Mcg) 1 puff IH BIDRT [facility] Last Admin: 11/10/16 20:31 Dose: 1 puff Mometasone Furoate/Formoterol Fumar (Dulera 100-5 Mcg) 2 puff IH BIDRT [facility] Last Admin: 11/19/16 18:49 Dose: Not Given Mometasone Furoate/Formoterol Fumar (Dulera 100-5 Mcg) 2 puff IH BIDRT [facility] Last Admin: 12/03/16 08:30 Dose: 2 puff Nifedipine (Procardia Xl) 30 mg PO DAILY [facility] Last Admin: 12/03/16 08:29 Dose: 30 mg Nystatin (Nystop) 0 gm TOP BID [facility] Last Admin: 11/24/16 19:53 Dose: Not Given Nystatin (Nystop) 0 gm TOP BID PRN PRN Reason: Rash Ondansetron HCl (Zofran Odt) 4 mg PO Q4H PRN PRN Reason: nausea, able to take PO Last Admin: 11/14/16 18:31 Dose: 4 mg Oxycodone/Acetaminophen (Percocet 325-5 Mg) 1 tab PO Q4H PRN PRN Reason: Pain (moderate 4-6) Last Admin: 11/19/16 12:57 Dose: 1 tab Oxycodone/Acetaminophen (Percocet 325-5 Mg) 0 tab PO Q4H PRN PRN Reason: Pain (moderate 4-6) Last Admin: 12/02/16 19:58 Dose: 1 tab Oxyquinoline Sulfate ([place] Oint) 0 oz TOP ASDIRECTED PRN PRN Reason: Wound Care Senna/Docusate Sodium (Senna Plus) 2 tab PO BID PRN PRN Reason: Constipation Last Admin: 11/24/16 19:57 Dose: 2 tab Simvastatin (Zocor) 20 mg PO BEDTIME [facility] Last Admin: 12/02/16 19:58 Dose: 20 mg Temazepam (Restoril) 15 mg PO BEDTIME PRN PRN Reason: Sleep Timolol Maleate (Timoptic 0.5% Ophth Soln) 0 ml EYEBOTH QAM [facility] Last Admin: 12/03/16 08:31 Dose: 1 drop - Exam General: Reports: Alert, Oriented HEENT: Reports: Mucous Membr. Moist/[place] Neck: Reports: Supple Lungs: Reports: Clear to Auscultation, Normal Respiratory Effort Cardiovascular: Reports: Regular Rate, Regular Rhythm GI/Abdominal Exam: Normal Bowel Sounds, Soft, Non-Tender Extremities: Other (dressing intact to right heel ) Psy/Mental Status: Reports: Alert, Normal Affect, Normal Mood *Q Meaningful Use (DIS) - VTE *Q VTE Criteria *Q: - Stroke *Q Stroke Criteria *Q: - AMI *Q AMI Criteria *Q:
== END 2016-12-03 12:40 | DRG 637 ==
LOC: CC.MS 16:32 → UNDOADMIN 16:44 → CC.MS 16:44
PROVIDERS: ADMIT Family Medicine; ATTEND Family Medicine
PROC: 2W2SX4Z Dressing of Right Foot using Bandage (ICD-10-PCS; principal; 2016-11-10)
DX: E11.621 Type 2 diabetes mellitus with foot ulcer (principal); I26.99 Other pulmonary embolism without acute cor pulmonale; L97.419 Non-pressure chronic ulcer of right heel and midfoot with unspecified severity; E11.51 Type 2 diabetes mellitus with diabetic peripheral angiopathy without gangrene; E78.00 Pure hypercholesterolemia, unspecified; Z95.828 Presence of other vascular implants and grafts; Z79.4 Long term (current) use of insulin; Z79.899 Other long term (current) drug therapy; Z88.5 Allergy status to narcotic agent; Z87.891 Personal history of nicotine dependence
CPT/HCPCS: 36415; 71275; 80048; 81001; 82962; 83880; 85025; 85379; 85610; 85730; 86140; 94640; 97110-GP; 97116-GP; 97164-GP; 97530-GP; 97597-GP; A6250; A9270-GY; J1650; J1815-GY; J1956; Q9967

== ENCOUNTER 2017-04-23 12:23 | Emergency (ER) | payer MEDICARE, OTHER ==
--- NOTE | 2017-04-23 12:59 | EDM.PDOC ---
ED HPI GENERAL MEDICAL PROBLEM - General Chief Complaint: Neuro Symptoms/Deficits Stated Complaint: unresponsive Time Seen by Provider: 04/23/17 12:35 Source of Information: Reports: EMS, Family (Adelita) History Limitations: Reports: Altered Mental Status - History of Present Illness INITIAL COMMENTS - FREE TEXT/NARRATIVE: Daughter came home at noon to check on her dad and found him in the recliner unresponsive. She checked his blood sugar and it was low so she gave him a glucose tablet and called 911. Ambulance states that BS was low when they arrived and gave him an amp of D50 and blood sugar came up to 256. He was diaphoretic at the time. He did not become responsive at all. He does not respond to any stimuli. He was then transported. Blood sugar was stable when he arrived here but still not responsive. temp is 93 degrees and blankets were added. Maintaining his saturations at 94% on room air. Respirations snoring and not responding. Pupils are 2mm and sluggish. No response to painful stimuli at all. Daughter states that he was fine at 0745 when she left, Home health aid was there and left his house at 0945 and he was well. daughter came home about noon and found him unresponsive. 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: Reports: Glucagon - Related Data Allergies Allergy/AdvReac Type Severity Reaction Status Date / Time morphine Allergy Nausea and Verified 04/23/17 13:44 Vomiting Home Meds: Home Meds Aspirin [Halfprin] 81 mg PO BRK 10/30/16 [History] Fluticasone/Salmeterol [Advair Diskus 100-50] 1 puff INH BID 10/30/16 [History] Gabapentin [Neurontin] 600 mg PO TID 10/30/16 [History] Latanoprost 1 drop EYEBOTH BEDTIME 10/30/16 [History] Levobunolol [Betagan 0.5% Ophth Soln] 1 drop EYEBOTH QAM 10/30/16 [History] NIFEdipine [Nifedipine ER] 30 mg PO DAILY 10/30/16 [History] metFORMIN HCl [Metformin HCl] 1,000 mg PO QAM 10/30/16 [History] metFORMIN HCl [Metformin HCl] 1,500 mg PO QPM 10/30/16 [History] Lisinopril 5 mg PO DAILY 11/10/16 [History] Rosuvastatin Calcium 10 mg PO DAILY 11/10/16 [History] Sennosides/Docusate Sodium [Senna-Docusate Sodium] 2 tab PO BID PRN 11/10/16 [ History] Apixaban [Eliquis] 5 mg PO BID #60 tablet 12/03/16 [Rx] Ferrous Sulfate 325 mg PO DAILY 04/23/17 [History] Furosemide [Lasix] 20 mg PO DAILY 04/23/17 [History] Insuln Asp Prot/Insulin Aspart [NovoLOG Mix 70-30] 20 unit SQ BID 04/23/17 [ History] NIFEdipine [Nifedipine ER] 30 mg PO DAILY 04/23/17 [History] Past Medical History HEENT History: Reports: Cataract Cardiovascular History: Reports: High Cholesterol Respiratory History: Reports: Asthma Endocrine/Metabolic History: Reports: Diabetes, Type II - Past Surgical History HEENT Surgical History: Reports: Cataract Surgery, Tonsillectomy Musculoskeletal Surgical History: Reports: Knee Replacement Social & Family History - Family History Family Medical History: Noncontributory - Tobacco Use Smoking Status *Q: Never Smoker Used Tobacco, but Quit: Yes Month Tobacco Last Used: 45 years ago - Caffeine Use Caffeine Use: Reports: None - Alcohol Use Days Per Week of Alcohol Use: 7 Number of Drinks Per Day: 2 Total Drinks Per Week: 14 - Recreational Drug Use Recreational Drug Use: No ED ROS GENERAL - Review of Systems Review Of Systems: Unable To Obtain ED EXAM, NEURO - Physical Exam Exam: See Below Exam Limited By: Altered Mental Status General Appearance: Other (No response to painful stimuli of sternal rub or pressure on finger nail.) Ears: Normal External Exam Nose: Normal Inspection Throat/Mouth: Normal Inspection, Other (does have slight gag reflex.) Head Exam: Atraumatic, Normocephalic Respiratory/Chest: Rales (bases, poor inspiratory effort. Maintaining airway on own with sats about 95%) Cardiovascular: Regular Rate, Rhythm, No Edema GI/Abdominal: Normal Bowel Sounds, Soft, Non-Tender Neurological: Other (no response to painful stimuli. No posturing.) Extremities: Normal Capillary Refill Skin Exam: Warm, Dry, Other (Does have diabetic ulcer on the bottom of right foot that is foolowed with pain clinic in [place]. Area is clean and dry. Not red around it.) Course - Vital Signs Last Recorded V/S: Last Vital Signs Temp 96.1 F 04/23/17 13:26 Pulse 80 04/23/17 13:26 Resp 18 04/23/17 13:26 BP 96/61 04/23/17 13:26 Pulse Ox 93 L 04/23/17 13:26 - Orders/Labs/Meds Orders: Active Orders 24 hr Category Date Time Status Head wo Cont [CT] Stat Exams 04/23/17 12:51 Taken Dextrose 5%-0.45% NaCl [Dextrose 5%-1/2 NS] 1,000 ml Med 04/23/17 13:00 Active IV ASDIRECTED Medication Orders Dextrose/Sodium Chloride (Dextrose 5%-1/2 Ns) 1,000 mls @ 100 mls/hr IV ASDIRECTED MAMIE Last Admin: 04/23/17 13:00 Dose: 100 mls/hr Labs: Laboratory Tests 04/23/17 04/23/17 04/23/17 Range/Units 12:47 12:47 12:47 WBC 12.8 H (5.0-10.0) 10^3/uL RBC 3.68 L (4.50-6.00) 10^6/uL Hgb 10.4 L (14.0-18.0) g/dL Hct 30.9 L (40.0-54.0) % MCV 84.0 (82.0-94.0) fL MCH 28.3 (27.0-32.0) pg MCHC 33.7 (33.0-38.0) g/dL RDW Coeff of Marii 16.7 H (11.0-15.0) % Plt Count 309 (150-400) 10^3/uL Neut % (Auto) 85.4 H (35-85) % Lymph % (Auto) 5.6 L (10-55) % [place] % (Auto) 7.5 (0-16) % Eos % (Auto) 1.3 (0-5) % Baso % (Auto) 0.2 (0-3) % Neut # (Auto) 10.92 H (1.80-7.00) 10^3/uL Lymph # (Auto) 0.71 L (1.00-4.80) 10^3/uL [place] # (Auto) 0.96 H (0.00-0.80) 10^3/uL Eos # (Auto) 0.17 (0.00-0.45) 10^3/uL Baso # (Auto) 0.02 10^3/uL PT 11.5 (9.7-12.3) SEC INR 1.11 (0.92-1.18) APTT 32.7 H (24.5-30.9) SEC D-Dimer, Quantitative 0.55 H (0.00-0.50) Sodium 134 L (136-145) mEq/L Potassium 3.3 L D (3.5-5.0) mEq/L Chloride 96 L (98-106) mEq/L Carbon Dioxide 28 (21-32) mmol/L BUN 13 (7-18) mg/dL Creatinine 0.7 (0.7-1.3) mg/dL Est Cr Clr Drug Dosing 77.36 mL/min Estimated GFR (MDRD) > 60 (>=60) mL/min Glucose 112 H (75-99) mg/dL Calcium 8.7 (8.4-10.1) mg/dL Lactate Dehydrogenase 113 (100-190) U/L Creatine Kinase 20 L (35-232) U/L Troponin I < 0.017 (0.00-0.06) ng/mL Meds: Medications Generic Name Dose Route Start Last Admin Trade Name Freq PRN Reason Stop Dose Admin Dextrose/Sodium Chloride 1,000 mls @ 100 mls/hr 04/23/17 13:00 04/23/17 13:00 Dextrose 5%-1/2 Ns IV 100 mls/hr ASDIRECTED MAMIE Administration Discontinued Medications Generic Name Dose Route Start Last Admin Trade Name Freq PRN Reason Stop Dose Admin Dextrose/Water 50 ml 04/23/17 13:57 04/23/17 14:01 Dextrose 50% In Water IVPUSH 04/23/17 13:58 25 ml ONETIME ONE Administration - Re-Assessments/Exams Free Text/Narrative Re-Assessment/Exam: 04/23/17 1315 E roderick contacted and talked to Dr. Hopkins to consult. He did suggest that he be transferred and was not able to give any other suggestions as to cause. [address] [facility] for transfer and talked to Dr. Muller, and he will accept on transfer. Will transfer per life flight. 04/23/17 13:57Blood sugar is down to 80 and has been gradually dropping. Will give 1/2 amp of D50 at this time to stabilize it. 04/23/17 14:25 Pt is starting to arouse with stimuli. Will move head when ears are touched, Has moved upper extremities when stimulated. No verbal response but he is now opening his eyes and looking around. Did squeeze fingers when asked. Departure - Departure Time of Disposition: 13:52 Disposition: DC/Tfer to Acute Hospital 02 Condition: Critical Clinical Impression: Unresponsive state, Hypoglycemic reaction - Discharge Information Forms: ED Department Discharge Additional Instructions: Transfer to [facility] per air with Dr. Muller accepting physician. - Problem List & Annotations (1) Unresponsive state SNOMED Code(s): 942797396 Code(s): R41.89 - OTH SYMPTOMS AND SIGNS W COGNITIVE FUNCTIONS AND AWARENESS Status: Acute Priority: High (2) Hypoglycemic reaction SNOMED Code(s): 708180 Code(s): E16.1 - OTHER HYPOGLYCEMIA Status: Acute Priority: High - Problem List Review Problem List Initiated/Reviewed/Updated: Yes - My Orders Last 24 Hours: My Active Orders 04/23/17 12:51 Head wo Cont [CT] Stat 04/23/17 13:00 Dextrose 5%-0.45% NaCl [Dextrose 5%-1/2 NS] 1,000 ml IV ASDIRECTED - Assessment/Plan Last 24 Hours: My Active Orders 04/23/17 12:51 Head wo Cont [CT] Stat 04/23/17 13:00 Dextrose 5%-0.45% NaCl [Dextrose 5%-1/2 NS] 1,000 ml IV ASDIRECTED Plan: Transfer to [facility] for further workup. Per ALS to [place] and then flight to [place].
[2017-04-23] MEDS: Dextrose 5%-0.45% NaCl 1,000 ML IV SCH (13:00)
[2017-04-23 13:08] LABS: CHLORIDE,CL 96 mEq/L (98-106); SODIUM,NA 134 mEq/L (136-145)
[2017-04-23 13:28] VITALS: BP 96/61
[2017-04-23] MEDS: 50% Dextrose in Water 50 ML Syringe IVPUSH ONE (14:01)
== END 2017-04-23 14:35 ==
LOC: CC.ED 12:23
DX: E11.649 Type 2 diabetes mellitus with hypoglycemia without coma (principal); R41.89 Other symptoms and signs involving cognitive functions and awareness; E78.00 Pure hypercholesterolemia, unspecified; Z88.5 Allergy status to narcotic agent; Z79.899 Other long term (current) drug therapy; Z79.84 Long term (current) use of oral hypoglycemic drugs; Z79.4 Long term (current) use of insulin; Z87.891 Personal history of nicotine dependence
CPT/HCPCS: 36415; 70450; 80048; 82550; 83615; 84484; 85025; 85379; 85610; 85730; 93005; 96365; 96366; 96375; 99285; J7042; J7060

== ENCOUNTER 2017-06-04 14:40 | Emergency (ER) | payer MEDICARE, OTHER ==
[2017-06-04 15:48] LABS: CHLORIDE,CL 95 mEq/L (98-106); SODIUM,NA 132 mEq/L (136-145)
[2017-06-04] MEDS ORDERED: Sodium Chloride 0.9% 1,000 ML IV SCH (16:15)
[2017-06-04] MEDS ORDERED: Levofloxacin/Dextrose 5%-Water 500 MG in Premix Bag 1 BAG IV ONE (16:44)
--- NOTE | 2017-06-04 16:48 | EDM.PDOC ---
ED HPI GENERAL MEDICAL PROBLEM - General Chief Complaint: General Stated Complaint: FEVER, WEAKNESS Time Seen by Provider: 06/04/17 14:52 Source of Information: Reports: Patient, Family - History of Present Illness INITIAL COMMENTS - FREE TEXT/NARRATIVE: Roque is a pleasant 82 year old male with a PMH of type II DM, right diabetic foot ulcer, diabetic neuropathy, hypertension, PVD, who presents to the ED via [facility] with c/o weakness, fever and shortness of breath. Family report that he was feeling well until this afternoon. They report that the weakness and shortness of breath came on rather suddenly. Daughter reports that he was up ambulating this morning and when the daughter went there at lunch he did not want to eat and was feeling ill. She reports she originally made an appointment to come to the clinic, but when she went back in the afternoon to get him to bring him to the appointment, he was too weak to get up so EMS was called. They do report that he has been doctoring for quite some time for a right diabetic heel ulcer. They report that on Wednesday, he had a casting device applied by Dr. Faulkner ([place]). He reports he has severe neuropathy, but he hasn't had any increased pain to his RLE. Daughter reports the ulcer is looking great. Daughter reports he did say his right great toe was "tingling" some yesterday. He also has a small pressure sore to his right buttock. Buttocks is reddened. Denies any chest pain, dizziness, N/V/D, abdominal pain. Onset: Today Onset Date: 06/04/17 Duration: Getting Worse Location: Reports: Generalized Sacral Pain Score (Numeric/FACES): 2 - Related Data Allergies Allergy/AdvReac Type Severity Reaction Status Date / Time morphine Allergy Nausea and Verified 06/04/17 14:51 Vomiting Home Meds: Home Meds Aspirin [Halfprin] 81 mg PO BRK 10/30/16 [History] Fluticasone/Salmeterol [Advair Diskus 100-50] 1 puff INH BID 10/30/16 [History] Gabapentin [Neurontin] 600 mg PO TID 10/30/16 [History] Latanoprost 1 drop EYEBOTH BEDTIME 10/30/16 [History] Levobunolol [Betagan 0.5% Ophth Soln] 1 drop EYEBOTH QAM 10/30/16 [History] metFORMIN HCl [Metformin HCl] 1,000 mg PO QAM 10/30/16 [History] metFORMIN HCl [Metformin HCl] 1,500 mg PO QPM 10/30/16 [History] Lisinopril 5 mg PO DAILY 11/10/16 [History] Rosuvastatin Calcium 10 mg PO DAILY 11/10/16 [History] Apixaban [Eliquis] 5 mg PO BID #60 tablet 12/03/16 [Rx] Ferrous Sulfate 325 mg PO DAILY 04/23/17 [History] Furosemide [Lasix] 20 mg PO DAILY 04/23/17 [History] Insuln Asp Prot/Insulin Aspart [NovoLOG Mix 70-30] 9 unit SQ BID 04/23/17 [ History] NIFEdipine [Nifedipine ER] 30 mg PO DAILY 04/23/17 [History] Past Medical History HEENT History: Reports: Cataract Cardiovascular History: Reports: High Cholesterol Respiratory History: Reports: Asthma Endocrine/Metabolic History: Reports: Diabetes, Type II - Past Surgical History HEENT Surgical History: Reports: Cataract Surgery, Tonsillectomy Musculoskeletal Surgical History: Reports: Knee Replacement Social & Family History - Family History Family Medical History: Noncontributory - Tobacco Use Smoking Status *Q: Former Smoker Used Tobacco, but Quit: Yes Month/Year Tobacco Last Used: 1971 - Caffeine Use Caffeine Use: Reports: None - Alcohol Use Days Per Week of Alcohol Use: 7 Number of Drinks Per Day: 2 Total Drinks Per Week: 14 - Recreational Drug Use Recreational Drug Use: No ED ROS GENERAL - Review of Systems Review Of Systems: See Below Constitutional: Reports: Fever, Chills, Weakness, Fatigue, Diaphoresis, Decreased Appetite HEENT: Reports: No Symptoms Respiratory: Reports: Shortness of Breath, Cough, Sputum Cardiovascular: Reports: Dyspnea on Exertion, Orthopnea. Denies: Chest Pain, Edema, Lightheadedness, Syncope Endocrine: Reports: Fatigue GI/Abdominal: Reports: Decreased Appetite. Denies: Abdominal Pain, Black Stool , Bloody Stool, Constipation, Diarrhea, Nausea, Vomiting : Denies: Dysuria, Frequency, Urgency Musculoskeletal: Reports: Other (buttock pain) Skin: Reports: Diaphoresis Neurological: Reports: Numbness, Tingling, Difficulty Walking, Weakness. Denies : Confusion, Dizziness, Trouble Speaking, Change in Speech Psychiatric: Reports: No Symptoms Hematologic/Lymphatic: Reports: No Symptoms Immunologic: Reports: No Symptoms ED EXAM, GENERAL - Physical Exam Exam: See Below Exam Limited By: No Limitations General Appearance: Alert, WD/WN, No Apparent Distress Head: Atraumatic, Normocephalic Neck: Normal Inspection, Supple, Non-Tender, Full Range of Motion Respiratory/Chest: No Respiratory Distress, No Accessory Muscle Use, Crackles, Wheezing Cardiovascular: Normal Peripheral Pulses, No Edema, Systolic Murmur, Irregularly Irregular GI/Abdominal: Normal Bowel Sounds, Soft, Non-Tender, No Organomegaly, No Distention, No Abnormal Bruit, No Mass Rectal (Males) Exam: Other (small open area R buttock) Back Exam: Normal Inspection, Full Range of Motion. No: CVA Tenderness (L), CVA Tenderness (R) Extremities: Normal Range of Motion, No Pedal Edema, Normal Capillary Refill, Increased Warmth (right great toe), Redness (right great toe) Neurological: Alert, Oriented, CN II-XII Intact, Normal Cognition, Normal Gait, Normal Reflexes, No Motor/Sensory Deficits Psychiatric: Normal Affect, Normal Mood Skin Exam: Warm, Dry, Intact, Normal Color, No Rash, Other (increased warmth and redness to right great toe) Lymphatic: No Adenopathy Course - Vital Signs Last Recorded V/S: Last Vital Signs Temp 98.9 F 06/04/17 18:38 Pulse 98 06/04/17 18:58 Resp 18 06/04/17 18:58 BP 94/59 L 06/04/17 18:58 Pulse Ox 96 06/04/17 18:58 - Orders/Labs/Meds Orders: Active Orders 24 hr Category Date Time Status Irvin Catheter Insertion [Insert Urinary Catheter] [OM. Care 06/04/17 18:30 Ordered PC] Q24H Oxygen Therapy, ED [RC] ASDIRECTED Care 06/04/17 18:59 Active Urinary Catheter Assessment [RC] ASDIRECTED Care 06/04/17 18:27 Active Chest 1V Frontal [CR] Stat Exams 06/04/17 15:04 Taken CULTURE BLOOD [BC] Stat Lab 06/04/17 15:24 Received CULTURE BLOOD [BC] Stat Lab 06/04/17 15:24 Received CULTURE SPUTUM + SMEAR [RM] Stat Lab 06/04/17 15:23 Ordered UA W/MICROSCOPIC [URIN] Stat Lab 06/04/17 15:37 Ordered Piperacillin/Tazobactam [Zosyn] 3.375 gm Med 06/04/17 18:30 Active Sodium Chloride 0.9% [Normal Saline] 50 ml IV STAT Sodium Chloride 0.9% [Normal Saline] 1,000 ml Med 06/04/17 16:15 Active IV ASDIRECTED Blood Culture x2 Reflex Set [OM.PC] Stat Oth 06/04/17 15:06 Ordered Medication Orders Sodium Chloride (Normal Saline) 1,000 mls @ 999 mls/hr IV ASDIRECTED MAMIE Last Admin: 06/04/17 16:14 Dose: 999 mls/hr Piperacillin Sod/Tazobactam (Sod 3.375 gm/ Sodium Chloride) 50 mls @ 100 mls/ hr IV STAT MAMIE Last Admin: 06/04/17 18:50 Dose: 100 mls/hr Labs: Laboratory Tests 06/04/17 06/04/17 06/04/17 Range/Units 15:24 15:24 15:24 WBC 24.1 H* (5.0-10.0) 10^3/uL RBC 3.58 L (4.50-6.00) 10^6/uL Hgb 10.1 L (14.0-18.0) g/dL Hct 30.6 L (40.0-54.0) % MCV 85.5 (82.0-94.0) fL MCH 28.2 (27.0-32.0) pg MCHC 33.0 (33.0-38.0) g/dL RDW Coeff of Marii 15.9 H (11.0-15.0) % Plt Count 301 (150-400) 10^3/uL Add Manual Diff Yes Neutrophils % (Manual) 74 (35-85) % Band Neutrophils % 15 H (0-5) % Lymphocytes % (Manual) 4 L (21-55) % Monocytes % (Manual) 6 (2-12) % Basophils % (Manual) 1 (0-3) % Absolute Neutrophils 21.45 H (1.80-7.00) 10^3/uL Lymphocytes # (Manual) 0.96 L (1.00-4.80) 10^3/uL Monocytes # (Manual) 1.45 H (0.00-0.80) 10^3/uL Basophils # (Manual) 0.24 10^3/uL D-Dimer, Quantitative 0.70 H (0.00-0.50) Sodium 132 L (136-145) mEq/L Potassium 4.2 D (3.5-5.0) mEq/L Chloride 95 L (98-106) mEq/L Carbon Dioxide 26 (21-32) mmol/L BUN 21 H D (7-18) mg/dL Creatinine 0.9 (0.7-1.3) mg/dL Est Cr Clr Drug Dosing 58.14 mL/min Estimated GFR (MDRD) > 60 (>=60) mL/min Glucose 175 H D (75-99) mg/dL POC Glucose (75-105) mg/dl Lactic Acid (0.4-2.0) mmol/L Calcium 9.0 (8.4-10.1) mg/dL Total Bilirubin 0.6 (0.0-1.0) mg/dL AST 12 L (15-37) U/L ALT 18 (12-78) U/L Alkaline Phosphatase 64 (46-116) U/L Troponin I < 0.017 (0.00-0.06) ng/mL C-Reactive Protein 11.1 H (0.2-0.8) mg/dL NT-Pro-B Natriuret Pep 1112 H (0-1000) pg/mL Total Protein 7.5 (6.4-8.2) g/dL Albumin 3.2 L (3.4-5.0) g/dL Urine Color (YELLOW) Urine Appearance (CLEAR) Urine pH (4.5-8.0) Ur Specific [place] (1.003-1.020) Urine Protein (NEGATIVE) mg/dL Urine Glucose (UA) (NEGATIVE) mg/dL Urine Ketones (NEGATIVE) mg/dL Urine Occult Blood (NEGATIVE) Urine Nitrite (NEGATIVE) Urine Bilirubin (NEGATIVE) Urine Urobilinogen (0.2-1.0) EU/dL Ur Leukocyte Esterase (NEGATIVE) Urine RBC (0-5) /HPF Urine WBC (0-5) /HPF 06/04/17 06/04/17 06/04/17 Range/Units 15:37 16:00 16:11 WBC (5.0-10.0) 10^3/uL RBC (4.50-6.00) 10^6/uL Hgb (14.0-18.0) g/dL Hct (40.0-54.0) % MCV (82.0-94.0) fL MCH (27.0-32.0) pg MCHC (33.0-38.0) g/dL RDW Coeff of Marii (11.0-15.0) % Plt Count (150-400) 10^3/uL Add Manual Diff Neutrophils % (Manual) (35-85) % Band Neutrophils % (0-5) % Lymphocytes % (Manual) (21-55) % Monocytes % (Manual) (2-12) % Basophils % (Manual) (0-3) % Absolute Neutrophils (1.80-7.00) 10^3/uL Lymphocytes # (Manual) (1.00-4.80) 10^3/uL Monocytes # (Manual) (0.00-0.80) 10^3/uL Basophils # (Manual) 10^3/uL D-Dimer, Quantitative (0.00-0.50) Sodium (136-145) mEq/L Potassium (3.5-5.0) mEq/L Chloride (98-106) mEq/L Carbon Dioxide (21-32) mmol/L BUN (7-18) mg/dL Creatinine (0.7-1.3) mg/dL Est Cr Clr Drug Dosing mL/min Estimated GFR (MDRD) (>=60) mL/min Glucose (75-99) mg/dL POC Glucose 180 H (75-105) mg/dl Lactic Acid 3.1 H (0.4-2.0) mmol/L Calcium (8.4-10.1) mg/dL Total Bilirubin (0.0-1.0) mg/dL AST (15-37) U/L ALT (12-78) U/L Alkaline Phosphatase (46-116) U/L Troponin I (0.00-0.06) ng/mL C-Reactive Protein (0.2-0.8) mg/dL NT-Pro-B Natriuret Pep (0-1000) pg/mL Total Protein (6.4-8.2) g/dL Albumin (3.4-5.0) g/dL Urine Color Dark yellow (YELLOW) Urine Appearance Clear (CLEAR) Urine pH 6.0 (4.5-8.0) Ur Specific [place] 1.020 (1.003-1.020) Urine Protein 30 H (NEGATIVE) mg/dL Urine Glucose (UA) Negative (NEGATIVE) mg/dL Urine Ketones Trace H (NEGATIVE) mg/dL Urine Occult Blood Negative (NEGATIVE) Urine Nitrite Negative (NEGATIVE) Urine Bilirubin Negative (NEGATIVE) Urine Urobilinogen 0.2 (0.2-1.0) EU/dL Ur Leukocyte Esterase Negative (NEGATIVE) Urine RBC 0-5 (0-5) /HPF Urine WBC Not seen (0-5) /HPF Meds: Medications Generic Name Dose Route Start Last Admin Trade Name Freq PRN Reason Stop Dose Admin Sodium Chloride 1,000 mls @ 999 mls/hr 06/04/17 16:15 06/04/17 16:14 Normal Saline IV 999 mls/hr ASDIRECTED MAMIE Administration Piperacillin Sod/Tazobactam 50 mls @ 100 mls/hr 06/04/17 18:30 06/04/17 18:50 Sod 3.375 gm/ Sodium Chloride IV 100 mls/hr STAT MAMIE Administration Discontinued Medications Generic Name Dose Route Start Last Admin Trade Name Freq PRN Reason Stop Dose Admin Levofloxacin/Dextrose 500 mg/ 100 mls @ 100 mls/hr 06/04/17 16:44 06/04/17 16 :56 Premix IV 06/04/17 17:43 100 mls/hr ONETIME ONE Administration Sodium Chloride Confirm 06/04/17 18:35 06/04/17 18:48 Normal Saline Administered 06/04/17 18:36 Not Given Dose 100 mls @ as directed .ROUTE .STK-MED ONE - Re-Assessments/Exams Free Text/Narrative Re-Assessment/Exam: Discussed case with Dr. Skelton ([facility] Hospitalist). He recommends getting lactic acid, broad spectrum antibiotoics, and bolus 2 L NS. Discussed that if patient was able to maintain BP he would accept onto hospitalist service. If patient unable to maintain BP, would need business solution analyst. Patient bolused 1 L NS. BP remains hypotensive at 92/62. Pulse 102. After 1.5 L NS BP 100/58, pulse 97. Case then discussed with Dr. Skelton, who recommends consultation with business solution analyst. Case discussed with Dr. Cobb ( Director Special Education [facility]). Recommends close monitoring of BP. Hold off on fluids after 2 L. Recommends phenylephrine gtt to maintain MAP >65 with max dose of 3 mcg/kg/min enroute if needed. [facility] agreed to transport ALS. Risks and benefits of transfer discussed with patient and daughter. Risks of transfer include worsening of condition enroute, , and MVA. Benefits of transfer include higher level of care and appropriate medications to maintain BP. Risks of nontransfer include worsening of condition, . Benefits of nontransfer include convenience and close to home. Daughter and patient voiced understanding and are agreeable to transfer. Departure - Departure Time of Disposition: 19:13 Disposition: DC/Tfer to Acute Hospital 02 Condition: Fair Clinical Impression: Cellulitis of great toe, right, Septic shock - Discharge Information Referrals: Brennan Garnica MD [Primary Care Provider] - Forms: ED Department Discharge - Problem List & Annotations (1) Cellulitis of great toe, right SNOMED Code(s): 29433306 Code(s): L03.031 - CELLULITIS OF RIGHT TOE Status: Acute Current Visit: Yes (2) Septic shock SNOMED Code(s): 67918400 Code(s): A41.9 - SEPSIS, UNSPECIFIED ORGANISM; R65.21 - SEVERE SEPSIS WITH SEPTIC SHOCK Status: Acute Current Visit: Yes - Problem List Review Problem List Initiated/Reviewed/Updated: Yes - My Orders Last 24 Hours: My Active Orders 06/04/17 15:04 Chest 1V Frontal [CR] Stat 06/04/17 15:06 Blood Culture x2 Reflex Set [OM.PC] Stat 06/04/17 15:23 CULTURE SPUTUM + SMEAR [RM] Stat 06/04/17 15:24 CULTURE BLOOD [BC] Stat CULTURE BLOOD [BC] Stat 06/04/17 15:37 UA W/MICROSCOPIC [URIN] Stat 06/04/17 16:15 Sodium Chloride 0.9% [Normal Saline] 1,000 ml IV ASDIRECTED 06/04/17 18:27 Urinary Catheter Assessment [RC] ASDIRECTED 06/04/17 18:30 Irvin Catheter Insertion [Insert Urinary Catheter] [OM.PC] Q24H Piperacillin/Tazobactam [Zosyn] 3.375 gm Sodium Chloride 0.9% [Normal Saline] 50 ml IV STAT 06/04/17 18:59 Oxygen Therapy, ED [RC] ASDIRECTED - Assessment/Plan Last 24 Hours: My Active Orders 06/04/17 15:04 Chest 1V Frontal [CR] Stat 06/04/17 15:06 Blood Culture x2 Reflex Set [OM.PC] Stat 06/04/17 15:23 CULTURE SPUTUM + SMEAR [RM] Stat 06/04/17 15:24 CULTURE BLOOD [BC] Stat CULTURE BLOOD [BC] Stat 06/04/17 15:37 UA W/MICROSCOPIC [URIN] Stat 06/04/17 16:15 Sodium Chloride 0.9% [Normal Saline] 1,000 ml IV ASDIRECTED 06/04/17 18:27 Urinary Catheter Assessment [RC] ASDIRECTED 06/04/17 18:30 Irvin Catheter Insertion [Insert Urinary Catheter] [OM.PC] Q24H Piperacillin/Tazobactam [Zosyn] 3.375 gm Sodium Chloride 0.9% [Normal Saline] 50 ml IV STAT 06/04/17 18:59 Oxygen Therapy, ED [RC] ASDIRECTED Plan: Patient will be transferred to [facility] ICU RM [address] Cobb as accepting physician.
[2017-06-04] MEDS ORDERED: Piperacillin/Tazobactam 3.375 GM in Sodium Chloride 0.9% 50 ML IV SCH (18:30)
[2017-06-04] MEDS ORDERED: Sodium Chloride 0.9% 100 ML ONE (18:35)
[2017-06-04 18:59] VITALS: BP 94/59
== END 2017-06-04 19:20 ==
LOC: CC.ED 14:40
DX: A41.9 Sepsis, unspecified organism (principal); R65.21 Severe sepsis with septic shock; L03.031 Cellulitis of right toe; E11.621 Type 2 diabetes mellitus with foot ulcer; E11.41 Type 2 diabetes mellitus with diabetic mononeuropathy; I10 Essential (primary) hypertension; E78.00 Pure hypercholesterolemia, unspecified; Z88.5 Allergy status to narcotic agent; Z79.899 Other long term (current) drug therapy; Z87.891 Personal history of nicotine dependence
CPT/HCPCS: 36415; 51701; 71045; 80053; 81001; 82962; 83605; 83880; 84484; 85025; 85379; 86140; 87040; 87070; 87077; 87186; 87205; 93005; 96361; 96365; 96367; 99285; J1956; J2543; J7030; J7050